=== PATIENT | male | born 1955 | race African-American/Black ===

== ENCOUNTER 2017-05-30 12:14 | Emergency (ER) | payer MEDICARE, OTHER ==
[~2017-05-30] VITALS: Ht 177.8 cm; Wt 64.9 kg
[~2017-05-30 12:14] MED LIST: DIPH25CA83 PO; DOXY100C2 PO; QUET200T3 PO; THIO10CA PO; TRAZ-144 PO; TYL2T MC; [UNRECOGNIZED DRUG - CODE] PO
[2017-05-30 12:18] VITALS: BP 139/82
== END 2017-05-30 13:05 | disposition home or self-care (01) ==
LOC: ER 12:16
DX: Z76.0 Encounter for issue of repeat prescription (principal); G89.29 Other chronic pain; M19.90 Unspecified osteoarthritis, unspecified site; F20.9 Schizophrenia, unspecified; F32.9 Major depressive disorder, single episode, unspecified; F17.200 Nicotine dependence, unspecified, uncomplicated; Z88.8 Allergy status to other drugs, medicaments and biological substances
CPT/HCPCS: A4606; Z7610

== ENCOUNTER 2018-01-04 20:14 | Inpatient (IN) | payer MEDICARE, OTHER ==
[~2018-01-04] VITALS: Ht 167.6 cm; Wt 60.8 kg
--- NOTE | 2018-01-04 20:30 | NUR ---
TO BED 4 A 62 YO MALE PATIENT BIBRA FOR "ALTERED" PER RA 88 REPORT AND HYPOTENSIVE. PATIENT IS LETHARGIC, AROUSABLE TO VERBAL AND TACTILE STIMULI. BREATHING EVEN AND UNLABORED. SKIN WARM AND DRY. PLACED ON CARDIAC AND VS MONITORING. SAFETY MEASURES IN PLACE. PATIENT REFUSED TO WEAR GOWN AT THIS TIME.
--- NOTE | 2018-01-04 21:17 | NUR ---
XR AT BEDSIDE.
[2018-01-04 21:29] LABS: HEMATOCRIT 35 % (39-51); MEAN CORPUSCULAR HEMOGLOBIN 19 PG (26.0-33.0); MEAN CORPUSCULAR HGB CONC 31 g/dl (31.0-36.0); MEAN CORPUSCULAR VOLUME 62 fL (80-96); PLATELET COUNT (AUTO) 263 /CMM (150-450); RED BLOOD CELL COUNT(AUTO) 5.68 MIL/uL (4.5-6.0); WHITE BLOOD COUNT (AUTO) 4.4 K/uL (4.3-11.0)
[2018-01-04] MEDS ORDERED: IV NS 0.9% 1,000 ML BAG IV ONE (21:30)
[2018-01-04 21:34] LABS: APPEARANCE,URINE CLEAR (CLEAR); BILIRUBIN,URINE NEGATIVE (NEGATIVE); BLOOD, URINE NEGATIVE Ery/uL (NEGATIVE); COLOR,URINE YELLOW (YELLOW); KETONES,URINE NEGATIVE (NEGATIVE); LEUKOCYTE ESTERASE ,URINE TRACE (NEGATIVE); NITRITE, URINE NEGATIVE (NEGATIVE); PH,URINE 7.5 (5.0-8.0); PROTEIN,URINE NEGATIVE (NEGATIVE); UGLUCOSE NEGATIVE (NEGATIVE)
--- NOTE | 2018-01-04 21:34 | NUR ---
BACK FROM CT.
[2018-01-04 21:40] LABS: CALCIUM, SERUM 8.1 mg/dL (8.5-10.1); CARBON DIOXIDE 31 mmol/L (21-32); CHLORIDE 109 mmol/L (98-107); CREATININE 0.9 mg/dL (0.6-1.3); GLUCOSE 83 mg/dL (74-106); POTASSIUM 4.5 mmol/L (3.5-5.1); SODIUM SERUM 144 mmol/L (136-145); UREA NITROGEN, BLOOD 13 mg/dL (7-18)
[2018-01-04 21:48] LABS: TROPONIN I < 0.017 ng/mL (0.00-0.056)
[2018-01-04 21:48] LABS: BACTERIA,URINE 1+ /HPF (None Seen); RBC,URINE 0-2 /HPF (0-2); SQUAMOUS EPITHELIAL CELL,UR 0-2 /HPF (None Seen); URINE AMORPHOUS PHOSPHATES Few /HPF (None Seen)
[2018-01-04 21:51] LABS: INR 1.1 (0.87-1.13)
[2018-01-04 21:54] LABS: ALANINE AMINOTRANSFERASE 88 U/L (12-78); ALBUMIN 2.6 g/dL (3.4-5.0); ALKALINE PHOSPHATASE 32 U/L (46-116); ASPARTATE AMINOTRANSFERASE 68 U/L (15-37); B-TYPE NATRIURETIC PEPTIDE 208 PG/ML (0-125); BILIRUBIN,DIRECT 0.1 mg/dL (0.0-0.2); BILIRUBIN,TOTAL 0.3 mg/dL (0.2-1.0); TOTAL PROTEIN, SERUM 6.9 g/dL (6.4-8.2)
[2018-01-04] MEDS ORDERED: PIPERACILLIN /TAZOBACTAM 3.375 G in IV D5W 50 ML IV ONE (22:00)
[2018-01-04] MEDS ORDERED: VANCOMYCIN 1 GM in IV D5W 250 ML IV ONE (22:00)
[2018-01-04] MEDS ORDERED: VANCOMYCIN 1 GM VIAL ONE (22:05)
[2018-01-04] MEDS ORDERED: PIPERACILLIN /TAZOBACTAM 3.375 G VIAL IV ONE (22:05)
[2018-01-04 22:08] LABS: BAND % (MANUAL) 1 % (0.0-5.0); EOSINOPHILS % (MANUAL) 3 % (0-4); LYMPHOCYTES % (MANUAL) 46 % (16-48); MONOCYTES % (MANUAL) 12 % (0-11.0); NEUTROPHILS % (MANUAL) 36 (42-76); REACTIVE LYMPHOCYTES 2 % (0-0)
[2018-01-04] MEDS ORDERED: Z GUARD REMEDY 2 OZ OINT TP PRN (22:30)
[2018-01-04] MEDS ORDERED: HYDROCODONE/APAP 5/325MG 1 EACH TABLET PO PRN (22:30)
[2018-01-04] MEDS ORDERED: ONDANSETRON HCL/PF 4 MG/2 ML VIAL IVP PRN (22:30)
[2018-01-04] MEDS ORDERED: MAG HYDROX/AL HYDROX/SIMETH 30 ML UDC PO PRN (22:30)
[2018-01-04] MEDS ORDERED: ACETAMINOPHEN 325 MG TABLET PO PRN (22:30)
[2018-01-04] MEDS ORDERED: MAGNESIUM HYDROXIDE 30 ML UDC PO PRN (22:30)
[2018-01-04] MEDS ORDERED: ZOLPIDEM TARTRATE 5 MG TABLET PO PRN (22:30)
--- NOTE | 2018-01-05 00:51 | NUR ---
ANDREA 105
--- NOTE | 2018-01-05 01:30 | NUR ---
Report given to Lena MCDANIEL for admission and stephon.
--- NOTE | 2018-01-05 01:43 | NUR ---
Transferred patient to benjie 105 via als protocol and assisted patient to walk to bed. vss. nad noted. Endorsed to RN at bedside.
[2018-01-05] MEDS: IV NS 0.9% 1,000 ML IV PRN ×2 (03:18→12:06)
[2018-01-05] MEDS: PANTOPRAZOLE 40 MG VIAL IV SCH ×2 (03:21→09:25)
[2018-01-05 04:00] VITALS: BP 102/65
--- NOTE | 2018-01-05 07:30 | NUR ---
PT IN BED, ASLEEP. NO DISTRESS NOTED. WILL CONT TO MONITOR.
[2018-01-05] MEDS ORDERED: LEVE500T9 PO (07:49)
[2018-01-05] MEDS ORDERED: ATOR20TA PO (07:49)
[2018-01-05] MEDS ORDERED: CLON2TAB4 PO (07:49)
[2018-01-05] MEDS ORDERED: METO25TA6 PO (07:49)
[2018-01-05 08:00] VITALS: BP 115/68
[2018-01-05 12:00] VITALS: BP 99/64
--- NOTE | 2018-01-05 12:30 | NUR ---
PT GOT SO AGITATED BECAUSE HE WAS LOOKING FOR HIS JACKET AND MONEY. NO MENTION OF JACKET AND MONEY ON PT'S ADMISSION WITH BELONGINGS CHECKLIST. PT WENT OUT OF BUILDING DEMANDING THAT HE WILL LOOK FOR HIS JACKET AND MONEY AND THAT HE NEEDED TO FIND A PAY PHONE. SECURITY NOTIFIED TO HELP. PT SENT BACK TO ROOM AND RE ASSURED TO TRY TO LOCATE HIS JACKET. CALLED ER, NO JACKET AND MONEY FOUND. PT UPSET, SECURITY AT BEDSIDE. WILL CONT TO MONITOR.
[2018-01-05] MEDS ORDERED: FIXODENT 1 EA TUBE MM PRN (18:30)
--- NOTE | 2018-01-05 18:47 | NUR ---
PT ASLEEP AT THIS TIME. REFUSED 1600 VITAL SIGNS. REFUSED TO EAT DEMANDING FOR FIXODENT. WILL GIVE TO PT IT BECOMES AVAILABLE FROM PHARMACY. REFUSED TO GET ASSISTED WITH ADL'S. WILL CONT TO MONITOR.
--- NOTE | 2018-01-05 20:00 | NUR ---
PRIVATE BANKER NOTES. PATIENT REFUSED VITAL SIGNS CHECK FOR 20:00. EXPLAINED RISKS AND BENEFITS AND OFFERED 3 TIMES AND STILL REFUSED.
--- NOTE | 2018-01-05 20:43 | NUR ---
SHEEP HERDER NOTES. TRANSFERRED CARE OF PATIENT AND GIVEN REPORT TO JONAS NATARAJAN
--- NOTE | 2018-01-05 21:00 | NUR ---
PETS SALESPERSON INITIAL NOTES PT WAS ENDORSED TO ME FOR SHIMA. IV IS PULLED OUT, PT IS REFUSING REINSERTION OF IV. PT IS REFUSING VITALS. EDUCATION WAS GIVEN. WILL CONTINUE TO MONITOR PT
--- NOTE | 2018-01-06 06:32 | NUR ---
ONLINE MARKETING SPECIALIST CLOSING NOTES PT IS IN BED SLEEPING. NO SIGNS OF SOB OR DISTRESS, BREATHING EVENLY AND UNLABORED ON RA. PT CONTINUED TO REFUSE VITAL SIGNS, BLOOD DRAW, AND IV REINSERTION. TELE MONITOR SHOWS SB 44. BED IS IN LOW AND LOCKED POSITION, CALL LIGHT WITHIN REACH. WILL ENDORSE TO DAYSHIFT
--- NOTE | 2018-01-06 07:30 | NUR ---
SENIOR MAINTENANCE MACHINIST AM NOTES PT IN BED, AAO X 3, ON RA, NO SIGNS OF SOB OR DISTRESS, BREATHING EVENLY AND UNLABORED ON RA. REFUSE TO PUT ON TELEMETRY BOX, REFUSE VITAL SIGNS, BLOOD DRAW, AND IV REINSERTION. AWARE. BRP, REFUSE BODY ASSESSMENT. REGULAR DIET. BED IS IN LOW AND LOCKED POSITION, CALL LIGHT WITHIN REACH. WILL CONTINUE TO MONITOR.
[2018-01-06] MEDS: PANTOPRAZOLE 40 MG VIAL IV SCH (09:00)
--- NOTE | 2018-01-06 11:04 | NUR ---
PINKY and case specialist Ciro met with pt. bedside. Pt. was lying in bed and was disgruntled. Pt. states he wants to leave the hospital and go back to [facility]. Pt. was admitted to [facility] on 01/04/[address] [facility] for altered level of consciousness. Pt. informed PINKY his belongings are at [facility]. PINKY informed pt. she will contact [facility] and follow up with him. PINKY contacted intake at [facility] and spoke to Caro in regards to pt. wanting to come back to [place]. Caro informed SW to fax clinicals and they will accept pt. back to their facility. PINKY faxed clinicals to intake (Caro) at . PINKY updated case specialist Ciro regarding pt. being accepted to [facility] in [place] and requested discharge summary from Dr. Castanon.
--- NOTE | 2018-01-06 12:07 | NUR ---
MS RN NOTES PATIENT TRANSFERRED TO [facility] RM 207 -1 REPORT GIVEN TO KIN MCDANIEL.
[2018-01-06 12:15] VITALS: BP 100/69
--- NOTE | 2018-01-06 13:09 | NUR ---
RN NOTES PT TRANSFERRED FROM [facility] TO 207 -1 A/O X 3, SAME VERBALLY RESPONSIVE. HE WAS ORIENTED TO UNIT BUT REFUSED ANY ASSESSMENT. PT WAS AGITATED AND UPSET THAT HE WAS MOVED TO THE UNIT AND STATED THAT HE JUST WANTED TO BE DISCHARGED. CM AND SW MADE AWARE AND CAME TO UNIT, SPOKE TO THE PT AND STILL FIRM ON GOING TO BE D/C. WILL CONTINUE TO MONITOR.
--- NOTE | 2018-01-06 13:35 | NUR ---
PINKY received a call from [facility] at [facility] informing SW that pt. will be going to [facility] location and to give grading clerk Kathy a call at . PINKY contacted grading clerk Kathy at [facility]. JONAS Grey informed SW to have pt's RN call in for a nurse to nurse report. PINKY gave pt's RN Ray contact information to JONAS Grey and informed him to call in the report to her .
--- NOTE | 2018-01-06 14:34 | NUR ---
RN NOTES PATIENT ASKED IF HE CAN STAY UNTIL PSYCH EVALUATION DONE. CALLED DR GIVENS BUT SAID THAT HE COULDN'T COME TODAY AND SAID TO CALL CRISIS SNAKER TRACTOR DRIVER TO COME. CRISIS SNAKER TRACTOR DRIVER SHAILESH JASSO CAME AND ASSESSED PT. PER GINO, PT DOES NOT MEET 5150 CRITERIA HOWEVER HE AGREED TO BE TRANSFERRED TO [facility]. CALLED BIBIANA AND GAVE REPORT. BED 608A IS READY FOR HIM.
--- NOTE | 2018-01-06 15:41 | NUR ---
RN DISCHARGED NOTES PATIENT DISCHARGED TO [facility] RM 608A STABLE AND IN NO ACUTE SIGNS OF DISTRESS. PT A/O X 3, CALMED AND COOPERATIVE DURING DISCHARGE. V/S TAKEN AND RECORDED. PT REFUSED SKIN ASSESSMENT. BELONGINGS CHECKED. COUNTED AND SIGNED FORM. PT REFUSED PNA AND FLU VACCINES. HEALTH TEACHINGS GIVEN AND VERBALIZED UNDERSTANDING. PT LEFT UNIT AT 1500 AMBULATORY ACCOMPANIED BY ME TO WAITING TAXI IN FRONT OF THE LOBBY. INSTRUCTIONS GIVEN TO MOTORCYCLE DESIGNER TO BRING PT TO ADMITTING DEPT ON THE FIRST FLOOR. MD AND EXECUTIVE DIRECTOR OF MARKETING AWARE OF DISCHARGE.
== END 2018-01-06 15:15 | DRG 917 ==
LOC: ER 20:15 → TELE-TD 01-05 00:53 → TELE1 01-05 17:06 → MEDSG1 01-06 12:04 → MEDSG2 01-06 12:04
PROVIDERS: ADMIT Internal Medicine; ATTEND Internal Medicine
DX: T44.7X1A Poisoning by beta-adrenoreceptor antagonists, accidental (unintentional), initial encounter (principal); G93.41 Metabolic encephalopathy; I95.2 Hypotension due to drugs; F20.9 Schizophrenia, unspecified; Y92.89 Other specified places as the place of occurrence of the external cause; D63.8 Anemia in other chronic diseases classified elsewhere; I10 Essential (primary) hypertension; J44.9 Chronic obstructive pulmonary disease, unspecified; G40.909 Epilepsy, unspecified, not intractable, without status epilepticus; F32.9 Major depressive disorder, single episode, unspecified; R53.1 Weakness; R00.1 Bradycardia, unspecified; Z79.899 Other long term (current) drug therapy
CPT/HCPCS: 36415; 70450-TC; 71045-TC; 80048-TC; 80076-TC; 80305; 81000-TC; 83605-TC; 83880; 84484-TC; 85025-TC; 85730-TC; 86850-TC; 87040-TC; 87081-TC; 87086-TC; C9113; G0480; J2543; J3370; J7030; J7040; J7060; Z7610

== ENCOUNTER 2018-11-24 20:35 | Inpatient (IN) | payer MEDICARE, OTHER ==
[~2018-11-24] VITALS: Ht 177.8 cm; Wt 63.5 kg
[~2018-11-24 20:35] MED LIST changes: +ATOR20TA PO; +CLON2TAB11 PO; -DIPH25CA83 PO; -DOXY100C2 PO; +LEVE500T9 PO; -QUET200T3 PO; -THIO10CA PO; -TRAZ-144 PO; -TYL2T MC; -[UNRECOGNIZED DRUG - CODE] PO
[2018-11-24 22:30] VITALS: BP 93/63
[2018-11-24] MEDS ORDERED: MAGNESIUM HYDROXIDE 30 ML UDC PO PRN (22:30)
[2018-11-24] MEDS ORDERED: MAG HYDROX/AL HYDROX/SIMETH 30 ML UDC PO PRN (22:30)
[2018-11-24] MEDS ORDERED: ACETAMINOPHEN 325 MG TABLET PO PRN (22:30)
[2018-11-25 06:15] LABS: HEMATOCRIT 39 % (39-51); MEAN CORPUSCULAR HGB CONC 31 g/dl (31.0-36.0); MEAN CORPUSCULAR VOLUME 61 fL (80-96); PLATELET COUNT (AUTO) 148 /CMM (150-450); WHITE BLOOD COUNT (AUTO) 3.1 K/uL (4.3-11.0)
[2018-11-25 06:28] LABS: ALBUMIN 2.6 g/dL (3.4-5.0); BILIRUBIN,TOTAL 0.7 mg/dL (0.2-1.0); CALCIUM, SERUM 7.9 mg/dL (8.5-10.1); CREATININE 0.9 mg/dL (0.6-1.3); MAGNESIUM 1.8 mg/dL (1.8-2.4); PHOSPHORUS 2.8 mg/dL (2.5-4.9); POTASSIUM 3.9 mmol/L (3.5-5.1); TOTAL PROTEIN, SERUM 6.3 g/dL (6.4-8.2)
[2018-11-25 08:00] VITALS: BP 110/69
[2018-11-25] MEDS ORDERED: Medication Not On Formulary EA (Levetiracetam (Keppra) 500 MG) PO SCH (09:00)
[2018-11-25 09:01] LABS: EOSINOPHILS % (MANUAL) 1 % (0-4); LYMPHOCYTES % (MANUAL) 42 % (16-48); MONOCYTES % (MANUAL) 7 % (0-11.0); NEUTROPHILS % (MANUAL) 50 (42-76)
[2018-11-25] MEDS: FLUTICASONE/VILANTEROL 1 EACH BLST.W.DEV IH SCH (09:31)
[2018-11-25] MEDS: NICOTINE PATCH (14MG) 14 MG PATCH.TD24 TD SCH (09:31)
[2018-11-25] MEDS: LEVETIRACETAM (250 MG) 250 MG TABLET PO SCH ×2 (09:32→17:53)
[2018-11-25 20:15] VITALS: BP 99/61
[2018-11-25] MEDS: TRAZODONE 50 MG TABLET PO SCH (21:09)
[2018-11-25] MEDS: ATORVASTATIN 10 MG TABLET PO SCH (21:10)
[2018-11-25] MEDS ORDERED: Medication Not On Formulary EA (Atorvastatin Calcium (Lipitor) 20 MG) PO SCH (22:00)
[2018-11-26 08:00] VITALS: BP 92/57
[2018-11-26] MEDS: LEVETIRACETAM (250 MG) 250 MG TABLET PO SCH ×2 (08:40→17:00)
[2018-11-26] MEDS: BENZTROPINE MESYLATE (1 MG) 1 MG TABLET PO SCH ×2 (08:40→17:00)
[2018-11-26] MEDS: CARBAMAZEPINE 200 MG TABLET PO SCH ×3 (08:40→17:01)
[2018-11-26] MEDS: NICOTINE PATCH (14MG) 14 MG PATCH.TD24 TD SCH (08:47)
[2018-11-26] MEDS: FLUTICASONE/VILANTEROL 1 EACH BLST.W.DEV IH SCH (08:47)
[2018-11-26] MEDS ORDERED: THIOTHIXENE 5 MG CAPSULE PO SCH (09:00)
[2018-11-26 16:00] VITALS: BP 100/61
[2018-11-26] MEDS ORDERED: HALOPERIDOL 5 MG TABLET PO ONE (17:00)
[2018-11-26 20:00] VITALS: BP 124/54
[2018-11-26] MEDS: TRAZODONE 50 MG TABLET PO SCH (21:10)
[2018-11-26] MEDS: ATORVASTATIN 10 MG TABLET PO SCH (21:10)
[2018-11-27 08:00] VITALS: BP 90/50
[2018-11-27] MEDS: NICOTINE PATCH (14MG) 14 MG PATCH.TD24 TD SCH (08:29)
[2018-11-27] MEDS: BENZTROPINE MESYLATE (1 MG) 1 MG TABLET PO SCH ×2 (08:30→16:15)
[2018-11-27] MEDS: HALOPERIDOL 5 MG TABLET PO SCH ×2 (08:30→16:15)
[2018-11-27] MEDS: CARBAMAZEPINE 200 MG TABLET PO SCH ×3 (08:30→16:15)
[2018-11-27] MEDS: LEVETIRACETAM (250 MG) 250 MG TABLET PO SCH ×2 (08:33→16:15)
[2018-11-27] MEDS: FLUTICASONE/VILANTEROL 1 EACH BLST.W.DEV IH SCH (08:33)
[2018-11-27 16:00] VITALS: BP 97/61
[2018-11-27 20:44] VITALS: BP 95/52
[2018-11-27] MEDS: ATORVASTATIN 10 MG TABLET PO SCH (21:22)
[2018-11-27] MEDS: TRAZODONE 50 MG TABLET PO SCH (21:23)
[2018-11-27] MEDS: TEMAZEPAM 7.5 MG CAPSULE PO PRN (22:11)
[2018-11-28 08:00] VITALS: BP 135/60
[2018-11-28] MEDS: LEVETIRACETAM (250 MG) 250 MG TABLET PO SCH ×2 (08:33→16:41)
[2018-11-28] MEDS: BENZTROPINE MESYLATE (1 MG) 1 MG TABLET PO SCH ×2 (08:33→16:41)
[2018-11-28] MEDS: HALOPERIDOL 5 MG TABLET PO SCH ×2 (08:33→16:41)
[2018-11-28] MEDS: NICOTINE PATCH (14MG) 14 MG PATCH.TD24 TD SCH ×2 (08:33→08:40)
[2018-11-28] MEDS: CARBAMAZEPINE 200 MG TABLET PO SCH ×3 (08:33→16:41)
[2018-11-28] MEDS: FLUTICASONE/VILANTEROL 1 EACH BLST.W.DEV IH SCH (08:40)
[2018-11-28] MEDS: LORAZEPAM 0.5 MG TABLET PO PRN (14:29)
[2018-11-28 16:03] VITALS: BP 102/51
[2018-11-28 20:00] VITALS: BP 106/54
[2018-11-28] MEDS: ATORVASTATIN 10 MG TABLET PO SCH (21:41)
[2018-11-28] MEDS: TRAZODONE 50 MG TABLET PO SCH (21:42)
[2018-11-29 08:05] VITALS: BP 108/62
[2018-11-29] MEDS: FLUTICASONE/VILANTEROL 1 EACH BLST.W.DEV IH SCH (08:40)
[2018-11-29] MEDS: BENZTROPINE MESYLATE (1 MG) 1 MG TABLET PO SCH ×2 (08:41→16:20)
[2018-11-29] MEDS: NICOTINE PATCH (14MG) 14 MG PATCH.TD24 TD SCH ×2 (08:41→08:57)
[2018-11-29] MEDS: CARBAMAZEPINE 200 MG TABLET PO SCH ×3 (08:41→16:20)
[2018-11-29] MEDS: LEVETIRACETAM (250 MG) 250 MG TABLET PO SCH ×2 (08:41→16:20)
[2018-11-29] MEDS: HALOPERIDOL 5 MG TABLET PO SCH ×2 (08:41→16:20)
[2018-11-29] MEDS: LORAZEPAM 0.5 MG TABLET PO PRN ×2 (09:46→20:14)
[2018-11-29 16:30] VITALS: BP 113/65
[2018-11-29 20:00] VITALS: BP 116/58
[2018-11-29] MEDS: TRAZODONE 50 MG TABLET PO SCH (21:51)
[2018-11-29] MEDS: TEMAZEPAM 7.5 MG CAPSULE PO PRN (21:51)
[2018-11-29] MEDS: ATORVASTATIN 10 MG TABLET PO SCH (21:52)
[2018-11-30] MEDS: LORAZEPAM 0.5 MG TABLET PO PRN ×2 (06:16→23:21)
[2018-11-30 06:54] LABS: HEMATOCRIT 41 % (39-51); HEMOGLOBIN 12.9 g/dL (13.5-17.5); LYMPHOCYTES % (AUTO) 32.5 % (20.0-44.0); MEAN CORPUSCULAR HGB CONC 31 g/dl (31.0-36.0); MEAN CORPUSCULAR VOLUME 61 fL (80-96); MONOCYTES # (AUTO) 0.7 /CMM (0.1-1.30); MONOCYTES % (AUTO) 23.3 % (2.0-12.0); NEUTROPHILS # (AUTO) 1.3 /CMM (1.8-8.9); NEUTROPHILS % (AUTO) 41.2 % (43.0-81.0); PLATELET COUNT (AUTO) 176 /CMM (150-450); RED BLOOD CELL COUNT(AUTO) 6.67 MIL/uL (4.5-6.0); WHITE BLOOD COUNT (AUTO) 3.1 K/uL (4.3-11.0)
[2018-11-30 07:16] LABS: ALBUMIN 3.4 g/dL (3.4-5.0); BILIRUBIN,DIRECT 0.2 mg/dL (0.0-0.2); BILIRUBIN,TOTAL 0.5 mg/dL (0.2-1.0); CALCIUM, SERUM 8.9 mg/dL (8.5-10.1); CREATININE 1.1 mg/dL (0.6-1.3); POTASSIUM 4.8 mmol/L (3.5-5.1); TOTAL PROTEIN, SERUM 7.5 g/dL (6.4-8.2)
[2018-11-30 08:00] VITALS: BP 113/44
[2018-11-30] MEDS: HALOPERIDOL 5 MG TABLET PO SCH ×2 (08:48→17:01)
[2018-11-30] MEDS: LEVETIRACETAM (250 MG) 250 MG TABLET PO SCH ×2 (08:48→17:01)
[2018-11-30] MEDS: CARBAMAZEPINE 200 MG TABLET PO SCH ×3 (08:48→17:02)
[2018-11-30] MEDS: BENZTROPINE MESYLATE (1 MG) 1 MG TABLET PO SCH ×2 (08:48→17:01)
[2018-11-30] MEDS: FLUTICASONE/VILANTEROL 1 EACH BLST.W.DEV IH SCH (08:51)
[2018-11-30] MEDS: NICOTINE PATCH (14MG) 14 MG PATCH.TD24 TD SCH (08:52)
[2018-11-30 10:14] LABS: EOSINOPHILS % (MANUAL) 1 % (0-4); LYMPHOCYTES % (MANUAL) 19 % (16-48); MONOCYTES % (MANUAL) 31 % (0-11.0); NEUTROPHILS % (MANUAL) 49 (42-76)
[2018-11-30 16:00] VITALS: BP 100/54
[2018-11-30 20:25] VITALS: BP 107/53
[2018-11-30] MEDS: ATORVASTATIN 10 MG TABLET PO SCH (21:31)
[2018-11-30] MEDS: TRAZODONE 50 MG TABLET PO SCH (21:31)
[2018-12-01 08:00] VITALS: BP 100/64
[2018-12-01] MEDS: BENZTROPINE MESYLATE (1 MG) 1 MG TABLET PO SCH ×2 (08:43→16:28)
[2018-12-01] MEDS: HALOPERIDOL 5 MG TABLET PO SCH ×2 (08:43→16:28)
[2018-12-01] MEDS: LEVETIRACETAM (250 MG) 250 MG TABLET PO SCH ×2 (08:43→16:28)
[2018-12-01] MEDS: FLUTICASONE/VILANTEROL 1 EACH BLST.W.DEV IH SCH (08:43)
[2018-12-01] MEDS: CARBAMAZEPINE 200 MG TABLET PO SCH ×3 (08:43→16:34)
[2018-12-01] MEDS: NICOTINE PATCH (14MG) 14 MG PATCH.TD24 TD SCH (08:55)
[2018-12-01] MEDS: LORAZEPAM 0.5 MG TABLET PO PRN (09:06)
[2018-12-01 16:09] VITALS: BP 100/64
[2018-12-01 20:00] VITALS: BP 101/61
[2018-12-01] MEDS: TEMAZEPAM 7.5 MG CAPSULE PO PRN (21:42)
[2018-12-01] MEDS: TRAZODONE 50 MG TABLET PO SCH (21:42)
[2018-12-01] MEDS: ATORVASTATIN 10 MG TABLET PO SCH (21:42)
[2018-12-02 08:00] VITALS: BP 109/58
[2018-12-02] MEDS: LORAZEPAM 0.5 MG TABLET PO PRN (08:48)
[2018-12-02] MEDS: FLUTICASONE/VILANTEROL 1 EACH BLST.W.DEV IH SCH (08:48)
[2018-12-02] MEDS: CARBAMAZEPINE 200 MG TABLET PO SCH ×2 (08:48→12:07)
[2018-12-02] MEDS: HALOPERIDOL 5 MG TABLET PO SCH (08:48)
[2018-12-02] MEDS: BENZTROPINE MESYLATE (1 MG) 1 MG TABLET PO SCH (08:49)
[2018-12-02] MEDS: LEVETIRACETAM (250 MG) 250 MG TABLET PO SCH (08:49)
[2018-12-02] MEDS: NICOTINE PATCH (14MG) 14 MG PATCH.TD24 TD SCH (08:55)
== END 2018-12-02 12:30 | disposition home or self-care (01) | DRG 885 ==
LOC: GPS 22:03
PROVIDERS: ADMIT Psychiatry & Neurology Psychiatry; ATTEND Psychiatry & Neurology Psychiatry
DX: F25.9 Schizoaffective disorder, unspecified (principal); E44.0 Moderate protein-calorie malnutrition; D63.8 Anemia in other chronic diseases classified elsewhere; G40.909 Epilepsy, unspecified, not intractable, without status epilepticus; F41.9 Anxiety disorder, unspecified; J44.9 Chronic obstructive pulmonary disease, unspecified; I10 Essential (primary) hypertension; F32.9 Major depressive disorder, single episode, unspecified; Z86.73 Personal history of transient ischemic attack (TIA), and cerebral infarction without residual deficits; D50.9 Iron deficiency anemia, unspecified; R74.0 Nonspecific elevation of levels of transaminase and lactic acid dehydrogenase [LDH]; Z91.5 Personal history of self-harm
CPT/HCPCS: 36415; 76700-TC; 80048-TC; 80053-TC; 80061-TC; 80076-TC; 80156-TC; 80177; 82728-TC; 83540-TC; 83735-TC; 84100-TC; 85025-TC; 87081-TC

== ENCOUNTER 2019-05-06 13:37 | Inpatient (IN) | payer MEDICARE, OTHER ==
[~2019-05-06] VITALS: Ht 177.8 cm; Wt 62.1 kg
--- NOTE | 2019-05-06 14:15 | NUR ---
ANY BOND FROM [employer] FOR MEDICAL CLEARANCE, ON 5150 FOR DTS/DTO. STATES HE WILL JUMP INTO WATER AND DROWN HIMSELF, ALSO THAT PEOPLE ARE FOLLOWING HIM AND SOMEONE STOLE HIS MEDS. DENIES AUDITORY/VISUAL HALLUCINATIONS. NO OTHER COMPLAINTS AT THIS TIME. READY FOR EVAL.
[2019-05-06] MEDS ORDERED: IV NS 0.9% 500 ML BAG IV ONE (14:30)
[2019-05-06 14:45] LABS: BASOPHILS # (AUTO) 0.1 /CMM (0.0-0.2); BASOPHILS % (AUTO) 2.5 % (0.0-2.0); EOSINOPHILS % (AUTO) 4.1 % (0.0-6.0); HEMATOCRIT 37 % (39-51); HEMOGLOBIN 11.5 g/dL (13.5-17.5); LYMPHOCYTES # (AUTO) 0.8 /CMM (0.8-4.8); LYMPHOCYTES % (AUTO) 19.4 % (20.0-44.0); MEAN CORPUSCULAR HGB CONC 31 g/dl (31.0-36.0); MEAN CORPUSCULAR VOLUME 61 fL (80-96); MONOCYTES # (AUTO) 0.6 /CMM (0.1-1.30); MONOCYTES % (AUTO) 16.1 % (2.0-12.0); NEUTROPHILS # (AUTO) 2.3 /CMM (1.8-8.9); NEUTROPHILS % (AUTO) 57.9 % (43.0-81.0); PLATELET COUNT (AUTO) 163 /CMM (150-450); RED BLOOD CELL COUNT(AUTO) 6.08 MIL/uL (4.5-6.0)
[2019-05-06 14:49] LABS: CALCIUM, SERUM 8.7 mg/dL (8.5-10.1); CARBON DIOXIDE 33 mmol/L (21-32); CHLORIDE 103 mmol/L (98-107); CREATININE 0.7 mg/dL (0.6-1.3); GLUCOSE 95 mg/dL (74-106); POTASSIUM 3.9 mmol/L (3.5-5.1); SODIUM SERUM 139 mmol/L (136-145); UREA NITROGEN, BLOOD 7 mg/dL (7-18)
[2019-05-06] MEDS ORDERED: FERR325T24 PO (14:54)
[2019-05-06] MEDS ORDERED: ERGO500040 PO (14:54)
[2019-05-06] MEDS ORDERED: ALBU18HF2 INH (14:54)
[2019-05-06] MEDS ORDERED: DUTA0.5C15 PO (14:54)
[2019-05-06] MEDS ORDERED: PHEN100C12 PO (14:54)
[2019-05-06] MEDS ORDERED: TAMS-12 PO (14:54)
[2019-05-06 14:55] LABS: ALANINE AMINOTRANSFERASE 68 U/L (12-78); ALCOHOL, BLOOD < 3 mg/dL (0-0); ALKALINE PHOSPHATASE 35 U/L (46-116); ASPARTATE AMINOTRANSFERASE 53 U/L (15-37); BILIRUBIN,DIRECT 0.2 mg/dL (0.0-0.2); BILIRUBIN,TOTAL 0.6 mg/dL (0.2-1.0); LIPASE 91 U/L (73-393)
--- NOTE | 2019-05-06 15:27 | NUR ---
URINE SENT TO STAT LAB
--- NOTE | 2019-05-06 16:03 | NUR ---
GPS 091U
--- NOTE | 2019-05-06 16:31 | NUR ---
REPORT GIVEN TO JONAS GILLIS FOR 211B GPS
--- NOTE | 2019-05-06 16:35 | NUR ---
IV removed. Catheter intact and site benign. Pressure and 4x4 applied to site. No bleeding noted.
--- NOTE | 2019-05-06 16:38 | NUR ---
PT GIVEN JELLO, JUICE, AND CRACKERS
--- NOTE | 2019-05-06 17:00 | NUR ---
PT TRANSFERRED TO FLOOR VIA WC
[2019-05-06 17:30] VITALS: BP 128/90
[2019-05-06] MEDS ORDERED: MAGNESIUM HYDROXIDE 30 ML UDC PO PRN (18:00)
[2019-05-06] MEDS ORDERED: MAG HYDROX/AL HYDROX/SIMETH 30 ML UDC PO PRN (18:00)
[2019-05-06] MEDS ORDERED: TEMAZEPAM 7.5 MG CAPSULE PO PRN (18:00)
[2019-05-06] MEDS ORDERED: LORAZEPAM 0.5 MG TABLET PO PRN (18:00)
[2019-05-06] MEDS ORDERED: ACETAMINOPHEN 325 MG TABLET PO PRN (18:00)
[2019-05-06 18:16] LABS: EOSINOPHILS % (MANUAL) 3 % (0-4); LYMPHOCYTES % (MANUAL) 30 % (16-48); MONOCYTES % (MANUAL) 10 % (0-11.0); NEUTROPHILS % (MANUAL) 57 (42-76)
--- NOTE | 2019-05-06 18:45 | NUR ---
GPS/RN-NOTES PATIENT ARRIVES IN THE UNIT VIA WHEEL CHAIR ,BROUGHT IN BY THE ER STAFF.ADMITTED FOR 5150 FOR DTS AND DTO. CONTRABAND AND VITAL SIGN TAKEN. WILL ENDORSE TO INCOMING NURSE FOR THE COMPLETION OF THE ADMISSION PROCESS.DR. BARNHART MADE AWARE OF PATIENT ADMISSION. PATIENT ALERT ORIENTED X3, AMBULATORY WITH STEADY GAIT. ADVISEMENT WAS GIVEN TO THE PATIENT.
--- NOTE | 2019-05-06 19:00 | NUR ---
GPS/PERFORMANCE SPECIALIST NOTES: RECEIVED PT. FROM JONAS VERNON. PT. ARRIVED TO UNIT AT 1715. ADMISSION CONTINUED.
[2019-05-06 20:00] VITALS: BP 97/57
--- NOTE | 2019-05-06 22:25 | NUR ---
GPS/SKIRT CLIPPER NOTES: NOTIFIED PT. FAMILY, AVISBENSON SIMMONS, OF PT. ADMISSION TO UNIT.
[2019-05-06] MEDS: ATORVASTATIN 10 MG TABLET PO SCH (22:36)
[2019-05-06] MEDS: LEVETIRACETAM (250 MG) 250 MG TABLET PO SCH (22:36)
[2019-05-06] MEDS: PHENYTOIN EXTENDED RELEASE 100 MG CAPSULE PO SCH (22:36)
[2019-05-07 07:40] LABS: ALBUMIN 2.9 g/dL (3.4-5.0); BILIRUBIN,TOTAL 0.6 mg/dL (0.2-1.0); CALCIUM, SERUM 8.5 mg/dL (8.5-10.1); CREATININE 0.8 mg/dL (0.6-1.3); POTASSIUM 4.7 mmol/L (3.5-5.1); TOTAL PROTEIN, SERUM 6.9 g/dL (6.4-8.2)
[2019-05-07 07:42] LABS: CHOLESTEROL 141 mg/dL (<200); HDL CHOLESTEROL 57 mg/dL (40-60); LDL 78 mg/dL (0-99); TRIGLYCERIDES 46 mg/dL (30-150)
[2019-05-07 08:00] VITALS: BP 108/67
[2019-05-07] MEDS: DUTASTERIDE (0.5 MG) 0.5 MG CAPSULE PO SCH (08:44)
[2019-05-07] MEDS: FERROUS SULFATE (325 MG) 325 MG/TAB TABLET PO SCH (08:45)
[2019-05-07] MEDS: LEVETIRACETAM (250 MG) 250 MG TABLET PO SCH ×2 (08:45→22:05)
[2019-05-07] MEDS: PHENYTOIN EXTENDED RELEASE 100 MG CAPSULE PO SCH ×2 (08:45→17:23)
[2019-05-07] MEDS: TAMSULOSIN 0.4 MG CAP.SR.24H PO SCH (08:45)
--- NOTE | 2019-05-07 10:01 | NUR ---
INITIAL DISCHARGE PLAN: Pt is currently homeless. Per pt, he would like to be placed in an assisted living facility. SW will work with the pt and the MD regarding appropriate discharge planning. SW will form a safe and proper discharge.
[2019-05-07] MEDS: ALBUTEROL HALF STRENGTH 1.25 MG/3 ML VIAL.NEB NEB PRN (15:27)
[2019-05-07 16:00] VITALS: BP 134/74
--- NOTE | 2019-05-07 19:30 | NUR ---
GPS RN NOTE, RECEIVED PATIENT AWAKE AND IN BED, NO S/S OR COMPLAINTS OF PAIN AT THIS TIME. PATIENT IS DISPLAYING NO S/S OF APPARENT DISTRESS AT THIS TIME. PATIENT BREATHING IS UNLABORED WITH EQUAL RISE AND FALL OF THE CHEST. PATIENT IS ALERT AND ORIENTED X 3 ON ROOM AIR WITH A SPO2 OF 98 %. PATIENT IS MED COMPLAINT, DISORGANIZED,, COOPERATIVE, ANXIOUS, DEPRESSED, AND NEEDS REORIENTATION. PATIENT DENIES SUICIDE AND HOMICIDAL IDEATIONS AT THIS TIME. PATIENT ASSISTED WITH TURNING AND REPOSITIONING Q2HR AND PRN FOR COMFORT AND CIRCULATION. PATIENT HAS NO NEEDS AT THIS TIME. PATIENT EDUCATED ON THE USE OF THE CALL RENTERIA. PATIENT BED SIDE RAILS ARE UP X 2 FOR SAFETY, BED IS LOCKED, AND LOW WILL CONTINUE TO MONITOR AND MAINTAIN SAFETY.
[2019-05-07] MEDS: BENZTROPINE MESYLATE (1 MG) 1 MG TABLET PO SCH (19:47)
[2019-05-07] MEDS: HALOPERIDOL 5 MG TABLET PO SCH (19:47)
[2019-05-07 19:58] VITALS: BP 104/57
[2019-05-07] MEDS: ATORVASTATIN 10 MG TABLET PO SCH (22:05)
[2019-05-07] MEDS: MIRTAZAPINE 15 MG TABLET PO SCH (22:05)
[2019-05-08 08:00] VITALS: BP 101/68
[2019-05-08] MEDS: FERROUS SULFATE (325 MG) 325 MG/TAB TABLET PO SCH (08:37)
[2019-05-08] MEDS: HALOPERIDOL 5 MG TABLET PO SCH ×2 (08:37→21:06)
[2019-05-08] MEDS: TAMSULOSIN 0.4 MG CAP.SR.24H PO SCH (08:37)
[2019-05-08] MEDS: GABAPENTIN 100 MG CAPSULE PO SCH ×3 (08:37→16:39)
[2019-05-08] MEDS: DUTASTERIDE (0.5 MG) 0.5 MG CAPSULE PO SCH (08:37)
[2019-05-08] MEDS: BENZTROPINE MESYLATE (1 MG) 1 MG TABLET PO SCH ×2 (08:37→21:06)
[2019-05-08] MEDS: PHENYTOIN EXTENDED RELEASE 100 MG CAPSULE PO SCH ×2 (08:37→16:39)
[2019-05-08] MEDS: LEVETIRACETAM (250 MG) 250 MG TABLET PO SCH ×2 (08:42→21:06)
[2019-05-08] MEDS ORDERED: GABAPENTIN 300 MG CAPSULE PO SCH (09:00)
[2019-05-08 16:00] VITALS: BP 100/64
[2019-05-08 19:48] VITALS: BP 100/55
[2019-05-08] MEDS: ATORVASTATIN 10 MG TABLET PO SCH (21:06)
[2019-05-08] MEDS: MIRTAZAPINE 15 MG TABLET PO SCH (21:07)
[2019-05-09 08:00] VITALS: BP 101/66
[2019-05-09] MEDS: BENZTROPINE MESYLATE (1 MG) 1 MG TABLET PO SCH ×2 (08:30→21:45)
[2019-05-09] MEDS: HALOPERIDOL 5 MG TABLET PO SCH ×2 (08:30→21:46)
[2019-05-09] MEDS: DUTASTERIDE (0.5 MG) 0.5 MG CAPSULE PO SCH (08:30)
[2019-05-09] MEDS: PHENYTOIN EXTENDED RELEASE 100 MG CAPSULE PO SCH ×2 (08:30→17:34)
[2019-05-09] MEDS: LEVETIRACETAM (250 MG) 250 MG TABLET PO SCH ×2 (08:30→21:46)
[2019-05-09] MEDS: FERROUS SULFATE (325 MG) 325 MG/TAB TABLET PO SCH (08:30)
[2019-05-09] MEDS: GABAPENTIN 100 MG CAPSULE PO SCH ×3 (08:30→17:34)
[2019-05-09] MEDS: TAMSULOSIN 0.4 MG CAP.SR.24H PO SCH (08:36)
[2019-05-09] MEDS ORDERED: ALBUTEROL FS 2.5 MG/0.5 ML VIAL.NEB NEB PRN (13:30)
[2019-05-09 16:00] VITALS: BP 100/59
[2019-05-09 21:01] VITALS: BP 90/43
[2019-05-09] MEDS: ATORVASTATIN 10 MG TABLET PO SCH (21:46)
[2019-05-10 08:00] VITALS: BP 100/58
[2019-05-10] MEDS: LEVETIRACETAM (250 MG) 250 MG TABLET PO SCH ×2 (08:50→20:38)
[2019-05-10] MEDS: HALOPERIDOL 5 MG TABLET PO SCH ×2 (08:50→20:38)
[2019-05-10] MEDS: FERROUS SULFATE (325 MG) 325 MG/TAB TABLET PO SCH (08:50)
[2019-05-10] MEDS: GABAPENTIN 100 MG CAPSULE PO SCH ×3 (08:50→17:37)
[2019-05-10] MEDS: DUTASTERIDE (0.5 MG) 0.5 MG CAPSULE PO SCH (08:50)
[2019-05-10] MEDS: BENZTROPINE MESYLATE (1 MG) 1 MG TABLET PO SCH ×2 (08:51→20:38)
[2019-05-10] MEDS: PHENYTOIN EXTENDED RELEASE 100 MG CAPSULE PO SCH ×2 (08:51→17:38)
[2019-05-10] MEDS: TAMSULOSIN 0.4 MG CAP.SR.24H PO SCH (08:51)
--- NOTE | 2019-05-10 15:05 | NUR ---
GROUP NOTE: Pt was encouraged to participate in group therapy session on 05/10/19 at 2:00pm pt stated, "I need need group therapy" and refused to attend.
--- NOTE | 2019-05-10 15:50 | NUR ---
Pt was notified by PINKY of his PC hearing on 05/11/19 at 1400.
[2019-05-10 16:00] VITALS: BP 98/52
[2019-05-10 20:15] VITALS: BP 111/68
[2019-05-10] MEDS: ATORVASTATIN 10 MG TABLET PO SCH (21:26)
[2019-05-11] MEDS: ALBUTEROL HALF STRENGTH 1.25 MG/3 ML VIAL.NEB NEB PRN (03:51)
[2019-05-11 08:00] VITALS: BP 102/58
[2019-05-11] MEDS: DUTASTERIDE (0.5 MG) 0.5 MG CAPSULE PO SCH (08:49)
[2019-05-11] MEDS: LEVETIRACETAM (250 MG) 250 MG TABLET PO SCH ×2 (08:50→21:04)
[2019-05-11] MEDS: FERROUS SULFATE (325 MG) 325 MG/TAB TABLET PO SCH (08:50)
[2019-05-11] MEDS: GABAPENTIN 100 MG CAPSULE PO SCH ×3 (08:50→17:42)
[2019-05-11] MEDS: TAMSULOSIN 0.4 MG CAP.SR.24H PO SCH (08:50)
[2019-05-11] MEDS: HALOPERIDOL 5 MG TABLET PO SCH ×2 (08:50→21:04)
[2019-05-11] MEDS: BENZTROPINE MESYLATE (1 MG) 1 MG TABLET PO SCH ×2 (08:50→21:04)
[2019-05-11] MEDS: PHENYTOIN EXTENDED RELEASE 100 MG CAPSULE PO SCH ×2 (08:50→17:42)
--- NOTE | 2019-05-11 09:03 | NUR ---
PINKY faxed SNF referral to admissions Department at [facility] Address: [address], [place] [address] for review.
--- NOTE | 2019-05-11 11:45 | NUR ---
SW received a call from Pepper, restorative coordinator at [facility] Address: [facility] [facility], [place] [address] stating pt has been accepted to the facility.
--- NOTE | 2019-05-11 15:15 | NUR ---
Group Note: Pt attended group therapy on 05/11/19 at 2pm discussing the topic of their goals in areas of both their hospitalization and their personal life. Pt remained in the room for about 5 minutes before he left stating that he did not want to participate.
[2019-05-11 16:00] VITALS: BP 136/97
[2019-05-11 20:24] VITALS: BP 101/63
[2019-05-11] MEDS: ATORVASTATIN 10 MG TABLET PO SCH (21:04)
[2019-05-11 23:00] VITALS: BP 110/66
[2019-05-12 08:00] VITALS: BP 106/55
[2019-05-12] MEDS: GABAPENTIN 100 MG CAPSULE PO SCH ×3 (08:19→17:53)
[2019-05-12] MEDS: TAMSULOSIN 0.4 MG CAP.SR.24H PO SCH (08:19)
[2019-05-12] MEDS: DUTASTERIDE (0.5 MG) 0.5 MG CAPSULE PO SCH (08:19)
[2019-05-12] MEDS: PHENYTOIN EXTENDED RELEASE 100 MG CAPSULE PO SCH ×2 (08:20→17:53)
[2019-05-12] MEDS: HALOPERIDOL 5 MG TABLET PO SCH ×2 (08:20→21:18)
[2019-05-12] MEDS: BENZTROPINE MESYLATE (1 MG) 1 MG TABLET PO SCH ×2 (08:21→21:18)
[2019-05-12] MEDS: FERROUS SULFATE (325 MG) 325 MG/TAB TABLET PO SCH (08:21)
[2019-05-12] MEDS: LEVETIRACETAM (250 MG) 250 MG TABLET PO SCH ×2 (08:21→21:18)
--- NOTE | 2019-05-12 08:48 | NUR ---
RN NOTES ADMINISTERED TYLENOL 650 MG PO PRN FOR LOWER BACK PAIN 04/09 PER PATIENT REQUEST. CONTINUED MONITORING.
[2019-05-12] MEDS ORDERED: ERGOCALCIFEROL (VITAMIN D 2) 50,000 UNIT CAPSULE PO SCH (09:00)
[2019-05-12] MEDS ORDERED: FIXODENT 1 EA TUBE MM ONE (12:00)
--- NOTE | 2019-05-12 15:08 | NUR ---
GROUP NOTE: Pt attended group therapy on 05/12/19 at 2pm discussing the topic of Patients right and concerns he had while hospitalized. Pt stated, "I'm just sitting here on the sideline." Pt remained in the room for about 15 minutes then got up and left the group.
[2019-05-12 16:00] VITALS: BP 105/58
[2019-05-12 20:00] VITALS: BP 97/59
[2019-05-12] MEDS: ATORVASTATIN 10 MG TABLET PO SCH (21:18)
[2019-05-12] MEDS: MIRTAZAPINE 15 MG TABLET PO SCH (21:22)
[2019-05-12 22:30] VITALS: BP 108/62
[2019-05-13 08:00] VITALS: BP 115/60
[2019-05-13] MEDS: DUTASTERIDE (0.5 MG) 0.5 MG CAPSULE PO SCH (08:24)
[2019-05-13] MEDS: HALOPERIDOL 5 MG TABLET PO SCH ×2 (08:24→21:18)
[2019-05-13] MEDS: BENZTROPINE MESYLATE (1 MG) 1 MG TABLET PO SCH ×2 (08:25→21:18)
[2019-05-13] MEDS: FERROUS SULFATE (325 MG) 325 MG/TAB TABLET PO SCH (08:25)
[2019-05-13] MEDS: GABAPENTIN 100 MG CAPSULE PO SCH ×3 (08:25→16:50)
[2019-05-13] MEDS: TAMSULOSIN 0.4 MG CAP.SR.24H PO SCH (08:25)
[2019-05-13] MEDS: PHENYTOIN EXTENDED RELEASE 100 MG CAPSULE PO SCH ×2 (08:25→16:50)
[2019-05-13] MEDS: LEVETIRACETAM (250 MG) 250 MG TABLET PO SCH ×2 (08:25→21:18)
--- NOTE | 2019-05-13 15:35 | NUR ---
Group Note: SW encouraged pt to attend group therapy on 05/13/19 at 2pm discussing depression but the pt was unable to attend. Pt stated that he did not want to discuss that topic because he feels better about his life.
[2019-05-13 16:00] VITALS: BP 100/63
[2019-05-13 20:00] VITALS: BP 101/45
[2019-05-13] MEDS: MIRTAZAPINE 15 MG TABLET PO SCH (21:18)
[2019-05-13] MEDS: ATORVASTATIN 10 MG TABLET PO SCH (21:19)
[2019-05-14 06:59] LABS: CALCIUM, SERUM 8.2 mg/dL (8.5-10.1); CREATININE 0.9 mg/dL (0.6-1.3); PHOSPHORUS 4.6 mg/dL (2.5-4.9); POTASSIUM 4.5 mmol/L (3.5-5.1)
[2019-05-14 08:00] VITALS: BP 102/67
[2019-05-14] MEDS: GABAPENTIN 100 MG CAPSULE PO SCH ×2 (08:12→12:03)
[2019-05-14] MEDS: BENZTROPINE MESYLATE (1 MG) 1 MG TABLET PO SCH (08:12)
[2019-05-14] MEDS: TAMSULOSIN 0.4 MG CAP.SR.24H PO SCH (08:12)
[2019-05-14] MEDS: FERROUS SULFATE (325 MG) 325 MG/TAB TABLET PO SCH (08:12)
[2019-05-14] MEDS: PHENYTOIN EXTENDED RELEASE 100 MG CAPSULE PO SCH ×2 (08:12→09:00)
[2019-05-14] MEDS: HALOPERIDOL 5 MG TABLET PO SCH (08:12)
[2019-05-14] MEDS: LEVETIRACETAM (250 MG) 250 MG TABLET PO SCH (08:12)
[2019-05-14] MEDS: DUTASTERIDE (0.5 MG) 0.5 MG CAPSULE PO SCH (08:12)
[2019-05-14 08:14] LABS: BASOPHILS # (AUTO) 0.1 /CMM (0.0-0.2); BASOPHILS % (AUTO) 2.6 % (0.0-2.0); EOSINOPHILS % (AUTO) 6.5 % (0.0-6.0); HEMATOCRIT 38 % (39-51); HEMOGLOBIN 11.7 g/dL (13.5-17.5); LYMPHOCYTES # (AUTO) 0.7 /CMM (0.8-4.8); LYMPHOCYTES % (AUTO) 16.5 % (20.0-44.0); MEAN CORPUSCULAR HGB CONC 31 g/dl (31.0-36.0); MEAN CORPUSCULAR VOLUME 61 fL (80-96); MONOCYTES % (AUTO) 23.6 % (2.0-12.0); NEUTROPHILS # (AUTO) 2.2 /CMM (1.8-8.9); NEUTROPHILS % (AUTO) 50.8 % (43.0-81.0); PLATELET COUNT (AUTO) 179 /CMM (150-450); RED BLOOD CELL COUNT(AUTO) 6.17 MIL/uL (4.5-6.0); WHITE BLOOD COUNT (AUTO) 4.4 K/uL (4.3-11.0)
--- NOTE | 2019-05-14 09:50 | NUR ---
DR. HOUGH COVERING FOR DR. BARNHART GAVE AN ORDER TO D/C HOLD AND D/C TO [facility], TO CONTINUE SAME MEDS INCLUDING PRN AND TO FOLLOW UP WITH PSYCH AND MEDICAL DOCTORS. PT. WITHOUT DISTRESS, DENIES BEING SUICIDAL AND HOMICIDAL. BELONGINGS READY AND DISCHARGE PAPERS READY.
--- NOTE | 2019-05-14 11:05 | NUR ---
REPORT GIVEN TO LAURA OVER THE FACILITY. PT. SIGNED THE DISCHARGE PAPEPRS AND BELONGINGS READY.
--- NOTE | 2019-05-14 11:34 | NUR ---
SAPNA GAVIRIA MADE AWARE OF THE DISCHARGE AND INFORMED THAT PT. REFUSED DILANTIN THIS MORNING BECAUSE HE IS ALREADY ON KEPPRA AND ORDERED TO D/C DILANTIN AND ORDERED TO CONTINUE SAME MEDS INCLUDING PRN WHILE DISCONTINUING DILANTIN UPON DISCHARGE.
[2019-05-14 12:07] LABS: EOSINOPHILS % (MANUAL) 5 % (0-4); LYMPHOCYTES % (MANUAL) 28 % (16-48); MONOCYTES % (MANUAL) 20 % (0-11.0); NEUTROPHILS % (MANUAL) 47 (42-76)
[2019-05-14 16:00] VITALS: BP 108/59
--- NOTE | 2019-05-14 16:15 | NUR ---
PT. LEFT THE UNIT VIA AMBULANCE AND TRANSPORTED VIA A GURNEY WITH BELONGINGS. LEFT WITHOUT DISTRESS AND ON STABLE CONDITION. V/S TAKEN: BP 110/74, IN 65, RR 18, TEMP. 97.5 AND OXYGEN SAT 98%.
--- NOTE | 2019-05-14 16:15 | NUR ---
Discharge Note: Pt was discharged to [facility] ([facility] Address: [facility] [address] [place] [address] via AMBULNZ, around 4pm. Pt has no family to notify. Upon discharge, the pt appeared to be in a euthymic mood and presented with a calm and content affect. Pt. states, I feel motivated today. Pt denied both suicidal and homicidal ideation as well as auditory and visual hallucinations. At the time of discharge, pt was provided with substance abuse referrals as well as smoking cessation referrals that are listed below. Pt will be under the care of his psychiatrist, Dr. Waldemar Fall [address] [place] [address] [phone], a record of notes was faxed to . Pt will also be under the care of his hotel service manager, Dr. Joanna Masterson [address] [address] [phone]. Substance Abuse Referrals: [facility] [address] [place] [address] Tel. -Family Medical Care -Primary Care -[address] [place] Provider -Mental Health Treatment -Tele-dermatology -HIV Services -Telemedicine Services [facility] [address] [facility] [place] [address] [facility] [address] [place] [address] Smoking Cessation Referrals: [facility] 800-LUNGUSA [employer] [facility] [facility] [phone] Pt was referred to a Nicotine Anonymous phone meeting for Friday at 10am with the phone number
== END 2019-05-14 16:15 | DRG 885 ==
LOC: ER 13:45 → GPS 16:35
PROVIDERS: ADMIT Psychiatry & Neurology Psychiatry; ATTEND Nurse Practitioner Acute Care
DX: F25.9 Schizoaffective disorder, unspecified (principal); F01.50 Vascular dementia, unspecified severity, without behavioral disturbance, psychotic disturbance, mood disturbance, and anxiety; E44.0 Moderate protein-calorie malnutrition; R45.851 Suicidal ideations; Z68.1 Body mass index [BMI] 19.9 or less, adult; F32.9 Major depressive disorder, single episode, unspecified; I10 Essential (primary) hypertension; G40.909 Epilepsy, unspecified, not intractable, without status epilepticus; F41.9 Anxiety disorder, unspecified; Z86.73 Personal history of transient ischemic attack (TIA), and cerebral infarction without residual deficits; J44.9 Chronic obstructive pulmonary disease, unspecified; D50.9 Iron deficiency anemia, unspecified; D72.819 Decreased white blood cell count, unspecified; F29 Unspecified psychosis not due to a substance or known physiological condition; Z86.19 Personal history of other infectious and parasitic diseases; K74.60 Unspecified cirrhosis of liver
CPT/HCPCS: 36415; 76700-TC; 80048-TC; 80053-TC; 80061-TC; 80076-TC; 80156-TC; 80185-TC; 80305; 83690-TC; 83735-TC; 84100-TC; 84484-TC; 85025-TC; 85730-TC; 87081-TC; G0480; J7040

== ENCOUNTER 2019-09-10 21:29 | Inpatient (IN) | payer MEDICARE, MEDICAID ==
[~2019-09-10] VITALS: Ht 172.7 cm; Wt 60.8 kg
[~2019-09-10 21:29] MED LIST changes: +ALBU18HF2 INH; +DUTA0.5C15 PO; +ERGO500040 PO; +FERR325T24 PO; +PHEN100C12 PO; +TAMS-12 PO
[2019-09-10] MEDS ORDERED: ALBUTEROL SULFATE INH 18 GM HFA.AER.AD IH PRN (22:00)
[2019-09-10] MEDS ORDERED: ERGOCALCIFEROL (VITAMIN D 2) 50,000 UNIT CAPSULE PO SCH (22:00)
--- NOTE | 2019-09-10 22:30 | NUR ---
-GPS/TOE STRIPPER NOTE: ADMITTED DIRECTLY A 63 YEAR OLD MALE FROM [facility] ON 5150 HOLD FOR DTS. CAME TO THE FLOOR VIA GURNEY ACCOMPANIED BY PARAMEDICS AROUND 2230. PER HOLD HE IS ADMITTED DUE TO DEPRESSION WITH SUICIDAL IDEATION.PATIENT IS UNDER THE PSYCHIATRIC CARE OF DR. ESPINO AND MARIA DEL CARMEN GAVIRIA.DURING ADMISSION PATIENT REPORTED SUICIDAL IDEATION WITH NO PLAN AT THIS TIME. PATIENT IS A/O X3, POORLY CONCENTRATED BUT COOPERATIVE, RESPONDS TO QUESTIONNAIRES APPROPRIATELY, BREATHING PATTERN NON-LABORED, COOPERATIVE, CALM, DEPRESSED, APPROPRIATE, DISHEVELED. SKIN WARM DRY AND INTACT. REFUSED GEN. BODY ASSESSMENT. HE WANTS HIS MOTHER TO BE NOTIFIED IN THE MORNING. MEDICATION GUIDE AND PATIENT'S RIGHTS PROVIDED. PLACED ON FALL PRECAUTION. BED LOCKED AND PLACED ON LOWEST POSITION. BED ALARM ON. ENVIRONMENTAL SAFETY CHECK DONE. WILL CONTINUE TO MONITOR Q 15 MINS. FOR SAFETY AND BEHAVIOR.
[2019-09-10 22:45] VITALS: BP 97/51
[2019-09-10] MEDS ORDERED: ACETAMINOPHEN 325 MG TABLET PO PRN (23:30)
[2019-09-10] MEDS ORDERED: MAGNESIUM HYDROXIDE 30 ML UDC PO PRN (23:30)
[2019-09-10] MEDS ORDERED: TEMAZEPAM 7.5 MG CAPSULE PO PRN (23:30)
[2019-09-10] MEDS ORDERED: clonazePAM 0.5 MG TABLET PO PRN (23:30)
--- NOTE | 2019-09-11 00:13 | NUR ---
ASKED IF I CAN CALL HIS MOTHER WHO LIVES IN [place], PATIENT STATED, " NO, PAMELA. MORNING.
--- NOTE | 2019-09-11 00:14 | NUR ---
MED RECONCILIATION DONE BY MARIA DEL CARMEN GAVIRIA.
[2019-09-11] MEDS: ATORVASTATIN 10 MG TABLET PO SCH ×2 (00:17→21:11)
--- NOTE | 2019-09-11 06:57 | NUR ---
Refused his lipitor last night. stated, " my cholesterol is fine."
[2019-09-11 07:14] LABS: EOSINOPHILS % (AUTO) 3.6 % (0.0-6.0); HEMATOCRIT 40 % (39-51); HEMOGLOBIN 12.3 g/dL (13.5-17.5); LYMPHOCYTES # (AUTO) 2.2 /CMM (0.8-4.8); LYMPHOCYTES % (AUTO) 61.1 % (20.0-44.0); MEAN CORPUSCULAR HGB CONC 31 g/dl (31.0-36.0); MEAN CORPUSCULAR VOLUME 62 fL (80-96); MONOCYTES # (AUTO) 0.3 /CMM (0.1-1.30); MONOCYTES % (AUTO) 9.1 % (2.0-12.0); NEUTROPHILS # (AUTO) 0.9 /CMM (1.8-8.9); NEUTROPHILS % (AUTO) 26.2 % (43.0-81.0); PLATELET COUNT (AUTO) 198 /CMM (150-450); RED BLOOD CELL COUNT(AUTO) 6.37 MIL/uL (4.5-6.0); WHITE BLOOD COUNT (AUTO) 3.6 K/uL (4.3-11.0)
[2019-09-11 07:19] LABS: CALCIUM, SERUM 8.5 mg/dL (8.5-10.1); POTASSIUM 4.7 mmol/L (3.5-5.1)
[2019-09-11] MEDS ORDERED: ALBUTEROL FS 2.5 MG/0.5 ML VIAL.NEB IH PRN (07:39)
[2019-09-11 08:00] VITALS: BP 108/71
[2019-09-11 08:36] LABS: BAND % (MANUAL) 6 % (0.0-5.0); LYMPHOCYTES % (MANUAL) 56 % (16-48); NEUTROPHILS % (MANUAL) 23 (42-76)
[2019-09-11 08:37] LABS: EOSINOPHILS % (MANUAL) 4 % (0-4); MONOCYTES % (MANUAL) 11 % (0-11.0)
[2019-09-11] MEDS: TAMSULOSIN 0.4 MG CAP.SR.24H PO SCH ×2 (09:00→11:02)
[2019-09-11] MEDS: NICOTINE PATCH (21MG) 21 MG PATCH.TD24 TD SCH (09:00)
[2019-09-11] MEDS: FERROUS SULFATE (325 MG) 325 MG/TAB TABLET PO SCH (11:02)
[2019-09-11] MEDS: LEVETIRACETAM (250 MG) 250 MG TABLET PO SCH ×2 (11:02→21:11)
[2019-09-11] MEDS: DUTASTERIDE (0.5 MG) 0.5 MG CAPSULE PO SCH (11:02)
[2019-09-11] MEDS: PHENYTOIN EXTENDED RELEASE 100 MG CAPSULE PO SCH ×2 (11:02→17:37)
[2019-09-11] MEDS: GABAPENTIN 300 MG CAPSULE PO SCH ×2 (12:26→17:37)
[2019-09-11] MEDS: HALOPERIDOL 5 MG TABLET PO SCH ×2 (12:26→17:36)
[2019-09-11] MEDS: BENZTROPINE MESYLATE (1 MG) 1 MG TABLET PO SCH ×2 (12:31→17:36)
[2019-09-11 16:00] VITALS: BP 103/55
[2019-09-11 20:02] VITALS: BP 115/69
[2019-09-11] MEDS: MIRTAZAPINE 15 MG TABLET PO SCH (21:11)
[2019-09-12 08:00] VITALS: BP 117/52
[2019-09-12] MEDS: FERROUS SULFATE (325 MG) 325 MG/TAB TABLET PO SCH (08:21)
[2019-09-12] MEDS: PHENYTOIN EXTENDED RELEASE 100 MG CAPSULE PO SCH ×2 (08:21→16:56)
[2019-09-12] MEDS: DUTASTERIDE (0.5 MG) 0.5 MG CAPSULE PO SCH (08:22)
[2019-09-12] MEDS: GABAPENTIN 300 MG CAPSULE PO SCH ×3 (08:22→16:56)
[2019-09-12] MEDS: LEVETIRACETAM (250 MG) 250 MG TABLET PO SCH ×2 (08:22→20:11)
[2019-09-12] MEDS: HALOPERIDOL 5 MG TABLET PO SCH ×2 (08:22→16:56)
[2019-09-12] MEDS: BENZTROPINE MESYLATE (1 MG) 1 MG TABLET PO SCH ×2 (08:22→16:56)
[2019-09-12] MEDS: TAMSULOSIN 0.4 MG CAP.SR.24H PO SCH (08:23)
[2019-09-12] MEDS: NICOTINE PATCH (21MG) 21 MG PATCH.TD24 TD SCH (09:00)
[2019-09-12 16:00] VITALS: BP 100/65
[2019-09-12 16:10] LABS: APPEARANCE,URINE Clear (CLEAR); BILIRUBIN,URINE Negative (NEGATIVE); BLOOD, URINE Negative Ery/uL (NEGATIVE); COLOR,URINE Yellow (YELLOW); KETONES,URINE Negative (NEGATIVE); LEUKOCYTE ESTERASE ,URINE Negative (NEGATIVE); NITRITE, URINE Negative (NEGATIVE); PROTEIN,URINE Negative (NEGATIVE); UGLUCOSE Negative (NEGATIVE)
--- NOTE | 2019-09-12 19:38 | NUR ---
COMFORTABLE, RESTING QUIETLY IN BED, NO APPARENT DISTRESS NOTED. ENVIRONMENTAL SAFETY CHECK DONE. ON FALL PRECAUTION. BED ALARM ON, BED LOCKED AND PLACED ON LOWEST POSITION. WILL CONYINUE TO MONITOR Q 15 MINS. FOR SAFETY AND BEHAVIOR.
[2019-09-12 19:50] VITALS: BP 90/51
[2019-09-12 20:00] VITALS: BP 90/51
--- NOTE | 2019-09-12 21:02 | NUR ---
2100: PATIENT IS PACING NAKED AROUND THE UNIT.
[2019-09-12] MEDS: MIRTAZAPINE 15 MG TABLET PO SCH (21:09)
[2019-09-12] MEDS: ATORVASTATIN 10 MG TABLET PO SCH (21:09)
--- NOTE | 2019-09-13 06:31 | NUR ---
GPS RN NOTES: PT SLEPT WELL. TOLERATED MEDS DUE. NO S/S OF PAIN NOTED. CONTINUE TO MONITOR.
[2019-09-13 08:00] VITALS: BP 100/53
[2019-09-13] MEDS: GABAPENTIN 300 MG CAPSULE PO SCH ×3 (08:00→17:13)
[2019-09-13] MEDS: TAMSULOSIN 0.4 MG CAP.SR.24H PO SCH (08:00)
[2019-09-13] MEDS: PHENYTOIN EXTENDED RELEASE 100 MG CAPSULE PO SCH ×2 (08:00→17:12)
[2019-09-13] MEDS: BENZTROPINE MESYLATE (1 MG) 1 MG TABLET PO SCH ×2 (08:00→17:13)
[2019-09-13] MEDS: DUTASTERIDE (0.5 MG) 0.5 MG CAPSULE PO SCH (08:00)
[2019-09-13] MEDS: FERROUS SULFATE (325 MG) 325 MG/TAB TABLET PO SCH (08:00)
[2019-09-13] MEDS: HALOPERIDOL 5 MG TABLET PO SCH ×2 (08:00→17:13)
[2019-09-13] MEDS: LEVETIRACETAM (250 MG) 250 MG TABLET PO SCH ×2 (08:00→21:17)
[2019-09-13] MEDS: NICOTINE PATCH (21MG) 21 MG PATCH.TD24 TD SCH (08:02)
--- NOTE | 2019-09-13 13:15 | NUR ---
INITIAL DISCHARGE PLAN: Pt is currently homeless. Per pt, he would like to be [facility] in a [facility]. SW will work with the pt and the MD regarding appropriate discharge planning. SW will form a safe and proper discharge.
--- NOTE | 2019-09-13 15:00 | NUR ---
GROUP NOTE: SW encouraged pt to participate in group on this present day discussing "gaining insight." Pt participated in group and stated that he had been off his medications while he was in [place] and stated that he started hearing voices that were saying that people were following him. Pt stated that he decided to check himself into the hospital to get on medications and also due to him being homeless and needing a SNF to go to.
[2019-09-13 16:00] VITALS: BP 119/64
[2019-09-13 20:15] VITALS: BP 105/58
[2019-09-13] MEDS: ATORVASTATIN 10 MG TABLET PO SCH (21:18)
[2019-09-13] MEDS: MIRTAZAPINE 15 MG TABLET PO SCH (21:18)
--- NOTE | 2019-09-13 23:14 | NUR ---
pt recieved awake alert and x3 .pt seem to ba depressed .pt is on 5250. pt was positive for cocaine.pt have psoriasis .will monitor pt for any dis comfort and for safety.
[2019-09-14 08:00] VITALS: BP 100/54
[2019-09-14] MEDS: DUTASTERIDE (0.5 MG) 0.5 MG CAPSULE PO SCH (08:39)
[2019-09-14] MEDS: HALOPERIDOL 5 MG TABLET PO SCH ×2 (08:39→16:39)
[2019-09-14] MEDS: LEVETIRACETAM (250 MG) 250 MG TABLET PO SCH ×2 (08:39→21:36)
[2019-09-14] MEDS: BENZTROPINE MESYLATE (1 MG) 1 MG TABLET PO SCH ×2 (08:39→16:39)
[2019-09-14] MEDS: PHENYTOIN EXTENDED RELEASE 100 MG CAPSULE PO SCH ×2 (08:39→16:39)
[2019-09-14] MEDS: FERROUS SULFATE (325 MG) 325 MG/TAB TABLET PO SCH (08:39)
[2019-09-14] MEDS: TAMSULOSIN 0.4 MG CAP.SR.24H PO SCH (08:39)
[2019-09-14] MEDS: GABAPENTIN 300 MG CAPSULE PO SCH ×3 (08:39→16:39)
[2019-09-14] MEDS: NICOTINE PATCH (21MG) 21 MG PATCH.TD24 TD SCH (08:46)
--- NOTE | 2019-09-14 14:40 | NUR ---
GROUP NOTE: SW encouraged pt to participate in group on this present day discussing "family support." Pt stated that he did not want to join group today due to him not having family and that he did not want to talk about the reasons why he does not have a good relationship with his mother and sisters. SW respected pts wish and encouraged pt to participate in group tomorrow. Pt agreed.
[2019-09-14 16:00] VITALS: BP 100/52
[2019-09-14 20:03] VITALS: BP 96/55
[2019-09-14] MEDS: ATORVASTATIN 10 MG TABLET PO SCH (21:36)
[2019-09-14] MEDS: MIRTAZAPINE 15 MG TABLET PO SCH (21:36)
[2019-09-15 08:00] VITALS: BP 102/54
[2019-09-15] MEDS: DUTASTERIDE (0.5 MG) 0.5 MG CAPSULE PO SCH (08:38)
[2019-09-15] MEDS: GABAPENTIN 300 MG CAPSULE PO SCH ×3 (08:39→16:32)
[2019-09-15] MEDS: LEVETIRACETAM (250 MG) 250 MG TABLET PO SCH ×2 (08:39→21:25)
[2019-09-15] MEDS: TAMSULOSIN 0.4 MG CAP.SR.24H PO SCH (08:39)
[2019-09-15] MEDS: BENZTROPINE MESYLATE (1 MG) 1 MG TABLET PO SCH ×2 (08:39→16:32)
[2019-09-15] MEDS: PHENYTOIN EXTENDED RELEASE 100 MG CAPSULE PO SCH ×2 (08:39→16:32)
[2019-09-15] MEDS: FERROUS SULFATE (325 MG) 325 MG/TAB TABLET PO SCH (08:39)
[2019-09-15] MEDS: NICOTINE PATCH (21MG) 21 MG PATCH.TD24 TD SCH (09:00)
[2019-09-15] MEDS: HALOPERIDOL 5 MG TABLET PO SCH ×2 (09:10→16:32)
--- NOTE | 2019-09-15 09:48 | NUR ---
PINKY FAXED SNF referral to [facility] Address: [address], [place] [address] for review.
--- NOTE | 2019-09-15 12:21 | NUR ---
SW received a call from Nurys, change control coordinator at [facility] Address: [address] [place] [address] stating pt was not accepted due to his current suicidal ideation.
--- NOTE | 2019-09-15 14:25 | NUR ---
PINKY contacted Nurys, health and wellness coordinator at [facility] Address: [address] [place] [address] and informed her pt is no longer having suicidal ideation. Nurys requested PINKY re-fax referral with updated clinicals for review.
--- NOTE | 2019-09-15 15:37 | NUR ---
PINKY FAXED updated clinicals to Nurys, marketing services coordinator at [facility] Address: [address] [facility], [place] [address] for review.
--- NOTE | 2019-09-15 15:44 | NUR ---
PINKY FAXED SNF REFERRAL to [facility] Address: [address] [facility], [place] [address] for review.
--- NOTE | 2019-09-15 15:49 | NUR ---
SW received a call from Nurys, program coordinator executive education at [facility] Address: [address] [place] [address] stating pt does not have a skilled need and therefore currently is unable to accept pt.
[2019-09-15 16:00] VITALS: BP 100/60
[2019-09-15 20:07] VITALS: BP 99/66
[2019-09-15] MEDS: MIRTAZAPINE 15 MG TABLET PO SCH (21:26)
[2019-09-15] MEDS: ATORVASTATIN 10 MG TABLET PO SCH (21:26)
[2019-09-16 08:00] VITALS: BP 100/54
[2019-09-16] MEDS: HALOPERIDOL 5 MG TABLET PO SCH ×2 (08:38→16:21)
[2019-09-16] MEDS: FERROUS SULFATE (325 MG) 325 MG/TAB TABLET PO SCH (08:38)
[2019-09-16] MEDS: LEVETIRACETAM (250 MG) 250 MG TABLET PO SCH ×2 (08:38→21:10)
[2019-09-16] MEDS: PHENYTOIN EXTENDED RELEASE 100 MG CAPSULE PO SCH ×2 (08:38→16:21)
[2019-09-16] MEDS: GABAPENTIN 300 MG CAPSULE PO SCH ×3 (08:38→16:22)
[2019-09-16] MEDS: BENZTROPINE MESYLATE (1 MG) 1 MG TABLET PO SCH ×2 (08:38→16:22)
[2019-09-16] MEDS: DUTASTERIDE (0.5 MG) 0.5 MG CAPSULE PO SCH (08:38)
[2019-09-16] MEDS: TAMSULOSIN 0.4 MG CAP.SR.24H PO SCH (08:38)
[2019-09-16] MEDS: NICOTINE PATCH (21MG) 21 MG PATCH.TD24 TD SCH (08:41)
--- NOTE | 2019-09-16 14:49 | NUR ---
PINKY FAXED SNF referral to Bronwyn, business process coordinator at [facility] Address: [address] [facility] [facility] [place] [address] for review.
--- NOTE | 2019-09-16 14:50 | NUR ---
PINKY faxed SNF referral to CJ, transitions rn care coordinator at [facility] Address: [place] [address] for review.
[2019-09-16 16:00] VITALS: BP 114/52
--- NOTE | 2019-09-16 16:06 | NUR ---
SW received a call from Jaimee, child care education coordinator at [facility] Address: [address] [place] [address] stating pt has been accepted to the facility.
--- NOTE | 2019-09-16 16:07 | NUR ---
SW received a call from ALINA, curriculum coordinator at [facility] Address: [place] [address] stating pt has been accepted pending bed availability.
--- NOTE | 2019-09-16 16:18 | NUR ---
INTERVENTION: SW spoke with pt and informed him that he has been accepted to [facility] Address: [address] [facility], [place] [address] and will be discharging tomorrow 09/17/19. Pt agreed with placement.
[2019-09-16] MEDS: MAG HYDROX/AL HYDROX/SIMETH 30 ML UDC PO PRN (17:23)
--- NOTE | 2019-09-16 17:24 | NUR ---
RN NOTE: PATIENT C/O INDIGESTION. ADMINISTERED PRN MAALOX.
[2019-09-16 20:00] VITALS: BP 107/65
[2019-09-16 20:30] VITALS: BP 107/65
[2019-09-16] MEDS: ATORVASTATIN 10 MG TABLET PO SCH (21:10)
[2019-09-16] MEDS ORDERED: MIRTAZAPINE 15 MG TABLET PO SCH (22:00)
--- NOTE | 2019-09-17 00:49 | NUR ---
rn gps notes patient states unable to sleep requesting for sleep medication. prn restoril given as ordered, will continue to monitor for effectiveness.
[2019-09-17] MEDS: MAG HYDROX/AL HYDROX/SIMETH 30 ML UDC PO PRN ×2 (07:37→12:10)
[2019-09-17 08:00] VITALS: BP 112/65
[2019-09-17] MEDS: HALOPERIDOL 5 MG TABLET PO SCH (08:09)
[2019-09-17] MEDS: LEVETIRACETAM (250 MG) 250 MG TABLET PO SCH (08:09)
[2019-09-17] MEDS: BENZTROPINE MESYLATE (1 MG) 1 MG TABLET PO SCH (08:10)
[2019-09-17] MEDS: GABAPENTIN 300 MG CAPSULE PO SCH ×3 (08:10→12:14)
[2019-09-17] MEDS: FERROUS SULFATE (325 MG) 325 MG/TAB TABLET PO SCH (08:10)
[2019-09-17] MEDS: DUTASTERIDE (0.5 MG) 0.5 MG CAPSULE PO SCH (08:10)
[2019-09-17] MEDS: TAMSULOSIN 0.4 MG CAP.SR.24H PO SCH (08:10)
[2019-09-17] MEDS: NICOTINE PATCH (21MG) 21 MG PATCH.TD24 TD SCH (08:10)
[2019-09-17] MEDS: PHENYTOIN EXTENDED RELEASE 100 MG CAPSULE PO SCH (08:10)
--- NOTE | 2019-09-17 10:00 | NUR ---
gps client engagement manager: visit dr. gonzalez here and aware of d'c to [place] this afternoon with order to continue home meds. orders carried out.
--- NOTE | 2019-09-17 10:11 | NUR ---
DISCHARGE NOTE: Pt will be discharged at 1:00pm [facility] [address] [facility] [address] . Pt has no family to notify. Pts mood is euthymic with congruent affect. Pt denied visual/auditory hallucinations and denied suicidal/homicidal ideation. Pt will be under the care of Psychiatrist: : Dr. Mackenzie Address: [address] [place] [address] and Airplane Gastank Liner Assembler: Dr Ledesma Address: [address] [place] [address] . The multidisciplinary exit care form was done, printed, signed, and given to the patient.
--- NOTE | 2019-09-17 11:30 | NUR ---
gps passenger solicitor: notes report given to jake (rn[facility] at [facility] of care. eta at 1300. pt aware.
--- NOTE | 2019-09-17 12:00 | NUR ---
gps therapist rrt: notes received order from dr. tyler per cn to discharge pt to [facility]. order acknowledged. pt stable for discharge. denies si/hi and auditory/visual hallucinations. discharge instructions given to pt and verbalized understanding. all belongings/valuables to be returned to pt prior to discharge.
--- NOTE | 2019-09-17 13:45 | NUR ---
gps stem cutter: notes ambulance here and report given to one of the crew.
--- NOTE | 2019-09-17 13:50 | NUR ---
gps field contact person: discharged pt stable for discharge. pt denies si/hi and auditory/visual hallucinations prior to discharge. all belongings and valuables returned to pt. all d'c papers copy given to the crew. discharge to snf via ambulance accompanied by 2 crew.
== END 2019-09-17 13:50 | DRG 885 ==
LOC: GPS 21:29
PROVIDERS: ADMIT Psychiatry & Neurology Psychiatry; ATTEND Nurse Practitioner Acute Care
DX: F25.9 Schizoaffective disorder, unspecified (principal); J44.9 Chronic obstructive pulmonary disease, unspecified; G40.909 Epilepsy, unspecified, not intractable, without status epilepticus; Z86.73 Personal history of transient ischemic attack (TIA), and cerebral infarction without residual deficits; D63.8 Anemia in other chronic diseases classified elsewhere; M19.90 Unspecified osteoarthritis, unspecified site; F31.9 Bipolar disorder, unspecified; F19.10 Other psychoactive substance abuse, uncomplicated; I10 Essential (primary) hypertension; F41.9 Anxiety disorder, unspecified; Z87.891 Personal history of nicotine dependence
CPT/HCPCS: 36415; 80048-TC; 80061-TC; 81000-TC; 85025-TC; 87081-TC

== ENCOUNTER 2019-10-20 19:51 | Inpatient (IN) | payer MEDICARE, OTHER ==
[~2019-10-20] VITALS: Ht 177.8 cm; Wt 65.8 kg
[2019-10-20] MEDS ORDERED: TEMAZEPAM 7.5 MG CAPSULE PO PRN (20:00)
[2019-10-20] MEDS ORDERED: MAG HYDROX/AL HYDROX/SIMETH 30 ML UDC PO PRN (20:00)
[2019-10-20] MEDS ORDERED: clonazePAM 0.5 MG TABLET PO PRN (20:00)
[2019-10-20] MEDS ORDERED: ACETAMINOPHEN 325 MG TABLET PO PRN (20:00)
[2019-10-20] MEDS ORDERED: BLOOD SUGAR DIAGNOSTIC 1 EACH STRIP IN ONE (20:00)
[2019-10-20] MEDS ORDERED: MAGNESIUM HYDROXIDE 30 ML UDC PO PRN (20:00)
[2019-10-20 20:26] VITALS: BP 111/75
[2019-10-21 01:11] VITALS: BP 111/75
[2019-10-21 08:00] VITALS: BP 121/69
[2019-10-21] MEDS ORDERED: MAGN400O6 PO (08:04)
[2019-10-21] MEDS ORDERED: BENZ1TAB7 PO (08:04)
[2019-10-21] MEDS ORDERED: GABA-534 PO (08:04)
[2019-10-21] MEDS ORDERED: ACET-868 PO (08:04)
[2019-10-21] MEDS ORDERED: MAG30ORA PO (08:04)
[2019-10-21] MEDS ORDERED: TEMA7.5C PO (08:04)
[2019-10-21] MEDS ORDERED: NICO-676 TD (08:04)
[2019-10-21] MEDS ORDERED: HALO5TAB8 PO (08:04)
[2019-10-21 08:07] LABS: CHOLESTEROL 146 mg/dL (<200); HDL CHOLESTEROL 67 mg/dL (40-60); LDL 74 mg/dL (0-99); TRIGLYCERIDES 48 mg/dL (30-150)
[2019-10-21 08:08] LABS: ALBUMIN 3.1 g/dL (3.4-5.0); BILIRUBIN,TOTAL 0.6 mg/dL (0.2-1.0); CALCIUM, SERUM 8.7 mg/dL (8.5-10.1); CREATININE 0.9 mg/dL (0.6-1.3); POTASSIUM 4.5 mmol/L (3.5-5.1); TOTAL PROTEIN, SERUM 7.2 g/dL (6.4-8.2)
[2019-10-21] MEDS ORDERED: MAGNESIUM HYDROXIDE 30 ML UDC PO PRN (08:30)
[2019-10-21] MEDS ORDERED: ACETAMINOPHEN 325 MG TABLET PO PRN (08:30)
[2019-10-21] MEDS ORDERED: clonazePAM 2 MG TABLET PO PRN (08:30)
[2019-10-21] MEDS ORDERED: MAG HYDROX/AL HYDROX/SIMETH 30 ML UDC PO PRN (08:30)
[2019-10-21] MEDS ORDERED: TEMAZEPAM 7.5 MG CAPSULE PO PRN (08:30)
[2019-10-21] MEDS: BENZTROPINE MESYLATE (1 MG) 1 MG TABLET PO SCH ×2 (09:07→16:49)
[2019-10-21] MEDS: FERROUS SULFATE (325 MG) 325 MG/TAB TABLET PO SCH (09:08)
[2019-10-21] MEDS: PHENYTOIN EXTENDED RELEASE 100 MG CAPSULE PO SCH ×2 (09:08→16:49)
[2019-10-21] MEDS: GABAPENTIN 300 MG CAPSULE PO SCH ×3 (09:08→16:49)
[2019-10-21] MEDS: LEVETIRACETAM (250 MG) 250 MG TABLET PO SCH ×2 (09:08→21:19)
[2019-10-21] MEDS: TAMSULOSIN 0.4 MG CAP.SR.24H PO SCH (09:08)
[2019-10-21] MEDS: DUTASTERIDE (0.5 MG) 0.5 MG CAPSULE PO SCH (09:08)
[2019-10-21] MEDS: NICOTINE PATCH (14MG) 14 MG PATCH.TD24 TD SCH (09:09)
[2019-10-21 16:00] VITALS: BP 100/59
[2019-10-21 20:37] VITALS: BP 98/63
[2019-10-21] MEDS: HALOPERIDOL 5 MG TABLET PO SCH (21:19)
[2019-10-21] MEDS: ATORVASTATIN 10 MG TABLET PO SCH (21:20)
[2019-10-21] MEDS: MIRTAZAPINE 15 MG TABLET PO SCH (21:20)
[2019-10-21] MEDS ORDERED: HALOPERIDOL 5 MG TABLET PO SCH (22:00)
[2019-10-21] MEDS ORDERED: MIRTAZAPINE 15 MG TABLET PO SCH (22:00)
[2019-10-22 08:00] VITALS: BP 100/63
[2019-10-22] MEDS: GABAPENTIN 300 MG CAPSULE PO SCH ×3 (08:25→17:54)
[2019-10-22] MEDS: TAMSULOSIN 0.4 MG CAP.SR.24H PO SCH (08:25)
[2019-10-22] MEDS: FERROUS SULFATE (325 MG) 325 MG/TAB TABLET PO SCH (08:25)
[2019-10-22] MEDS: BENZTROPINE MESYLATE (1 MG) 1 MG TABLET PO SCH ×2 (08:25→17:54)
[2019-10-22] MEDS: DUTASTERIDE (0.5 MG) 0.5 MG CAPSULE PO SCH (08:25)
[2019-10-22] MEDS: LEVETIRACETAM (250 MG) 250 MG TABLET PO SCH ×2 (08:25→21:20)
[2019-10-22] MEDS: PHENYTOIN EXTENDED RELEASE 100 MG CAPSULE PO SCH ×2 (08:27→17:54)
[2019-10-22] MEDS: NICOTINE PATCH (14MG) 14 MG PATCH.TD24 TD SCH (08:33)
[2019-10-22 16:00] VITALS: BP 99/61
[2019-10-22 19:54] VITALS: BP 101/57
[2019-10-22] MEDS: ATORVASTATIN 10 MG TABLET PO SCH (21:19)
[2019-10-22] MEDS: HALOPERIDOL 5 MG TABLET PO SCH (21:20)
[2019-10-22] MEDS: MIRTAZAPINE 15 MG TABLET PO SCH (21:21)
[2019-10-23 08:00] VITALS: BP 105/85
[2019-10-23] MEDS: DUTASTERIDE (0.5 MG) 0.5 MG CAPSULE PO SCH (08:57)
[2019-10-23] MEDS: PHENYTOIN EXTENDED RELEASE 100 MG CAPSULE PO SCH ×2 (08:57→18:32)
[2019-10-23] MEDS: GABAPENTIN 300 MG CAPSULE PO SCH ×3 (08:57→18:33)
[2019-10-23] MEDS: LEVETIRACETAM (250 MG) 250 MG TABLET PO SCH ×2 (08:57→21:22)
[2019-10-23] MEDS: TAMSULOSIN 0.4 MG CAP.SR.24H PO SCH (08:57)
[2019-10-23] MEDS: FERROUS SULFATE (325 MG) 325 MG/TAB TABLET PO SCH ×2 (08:57→18:30)
[2019-10-23] MEDS: BENZTROPINE MESYLATE (1 MG) 1 MG TABLET PO SCH ×2 (08:58→18:31)
[2019-10-23] MEDS: NICOTINE PATCH (14MG) 14 MG PATCH.TD24 TD SCH (08:58)
[2019-10-23 16:00] VITALS: BP 100/97
[2019-10-23 20:19] VITALS: BP 96/57
[2019-10-23] MEDS: ATORVASTATIN 10 MG TABLET PO SCH (21:24)
[2019-10-23] MEDS: HALOPERIDOL 5 MG TABLET PO SCH (21:56)
[2019-10-23] MEDS: MIRTAZAPINE 15 MG TABLET PO SCH (21:58)
[2019-10-24 08:00] VITALS: BP 141/50
[2019-10-24] MEDS: GABAPENTIN 300 MG CAPSULE PO SCH ×3 (08:15→16:34)
[2019-10-24] MEDS: TAMSULOSIN 0.4 MG CAP.SR.24H PO SCH (08:15)
[2019-10-24] MEDS: BENZTROPINE MESYLATE (1 MG) 1 MG TABLET PO SCH ×2 (08:15→16:34)
[2019-10-24] MEDS: DUTASTERIDE (0.5 MG) 0.5 MG CAPSULE PO SCH (08:15)
[2019-10-24] MEDS: LEVETIRACETAM (250 MG) 250 MG TABLET PO SCH ×2 (08:15→20:43)
[2019-10-24] MEDS: PHENYTOIN EXTENDED RELEASE 100 MG CAPSULE PO SCH ×2 (08:15→16:34)
[2019-10-24] MEDS: FERROUS SULFATE (325 MG) 325 MG/TAB TABLET PO SCH (08:16)
[2019-10-24] MEDS: NICOTINE PATCH (14MG) 14 MG PATCH.TD24 TD SCH (08:18)
[2019-10-24] MEDS: HYDROCODONE/APAP 5/325MG 1 EACH TABLET PO PRN (11:28)
[2019-10-24 16:00] VITALS: BP 105/53
[2019-10-24 20:13] VITALS: BP 91/42
[2019-10-24] MEDS: MIRTAZAPINE 15 MG TABLET PO SCH (21:57)
[2019-10-24] MEDS: ATORVASTATIN 10 MG TABLET PO SCH (21:58)
[2019-10-24] MEDS: HALOPERIDOL 5 MG TABLET PO SCH (21:58)
[2019-10-25] MEDS: HYDROCODONE/APAP 5/325MG 1 EACH TABLET PO PRN (06:58)
[2019-10-25 08:00] VITALS: BP 100/60
[2019-10-25] MEDS: BENZTROPINE MESYLATE (1 MG) 1 MG TABLET PO SCH ×2 (08:01→16:10)
[2019-10-25] MEDS: DUTASTERIDE (0.5 MG) 0.5 MG CAPSULE PO SCH (08:01)
[2019-10-25] MEDS: TAMSULOSIN 0.4 MG CAP.SR.24H PO SCH (08:01)
[2019-10-25] MEDS: FERROUS SULFATE (325 MG) 325 MG/TAB TABLET PO SCH (08:01)
[2019-10-25] MEDS: LEVETIRACETAM (250 MG) 250 MG TABLET PO SCH ×2 (08:02→21:30)
[2019-10-25] MEDS: GABAPENTIN 300 MG CAPSULE PO SCH ×3 (08:02→16:10)
[2019-10-25] MEDS: PHENYTOIN EXTENDED RELEASE 100 MG CAPSULE PO SCH ×2 (08:03→16:10)
[2019-10-25] MEDS: NICOTINE PATCH (14MG) 14 MG PATCH.TD24 TD SCH (09:00)
[2019-10-25 16:00] VITALS: BP 105/62
[2019-10-25 21:00] VITALS: BP 109/53
[2019-10-25] MEDS: HALOPERIDOL 5 MG TABLET PO SCH (21:30)
[2019-10-25] MEDS: ATORVASTATIN 10 MG TABLET PO SCH (21:31)
[2019-10-25] MEDS ORDERED: MIRTAZAPINE 15 MG TABLET PO SCH (22:00)
[2019-10-26 08:00] VITALS: BP 95/58
[2019-10-26] MEDS: TAMSULOSIN 0.4 MG CAP.SR.24H PO SCH (08:21)
[2019-10-26] MEDS: BENZTROPINE MESYLATE (1 MG) 1 MG TABLET PO SCH (08:21)
[2019-10-26] MEDS: DUTASTERIDE (0.5 MG) 0.5 MG CAPSULE PO SCH (08:21)
[2019-10-26] MEDS: LEVETIRACETAM (250 MG) 250 MG TABLET PO SCH (08:21)
[2019-10-26] MEDS: FERROUS SULFATE (325 MG) 325 MG/TAB TABLET PO SCH (08:21)
[2019-10-26] MEDS: GABAPENTIN 300 MG CAPSULE PO SCH ×2 (08:21→12:38)
[2019-10-26] MEDS: NICOTINE PATCH (14MG) 14 MG PATCH.TD24 TD SCH (08:22)
[2019-10-26] MEDS: PHENYTOIN EXTENDED RELEASE 100 MG CAPSULE PO SCH (08:24)
[2019-10-26] MEDS: HYDROCODONE/APAP 5/325MG 1 EACH TABLET PO PRN (12:38)
[2019-10-27] MEDS ORDERED: ERGOCALCIFEROL (VITAMIN D 2) 50,000 UNIT CAPSULE PO SCH (09:00)
== END 2019-10-26 13:00 | disposition home or self-care (01) | DRG 885 ==
LOC: GPS 19:51
PROVIDERS: ADMIT Psychiatry & Neurology Psychiatry; ATTEND Hospitalist
DX: F25.1 Schizoaffective disorder, depressive type (principal); E44.1 Mild protein-calorie malnutrition; R45.851 Suicidal ideations; Z79.899 Other long term (current) drug therapy; Z91.14 Patient's other noncompliance with medication regimen; Z87.891 Personal history of nicotine dependence; F41.9 Anxiety disorder, unspecified; G40.909 Epilepsy, unspecified, not intractable, without status epilepticus; E78.5 Hyperlipidemia, unspecified; Z68.20 Body mass index [BMI] 20.0-20.9, adult; G47.00 Insomnia, unspecified; J44.9 Chronic obstructive pulmonary disease, unspecified; I10 Essential (primary) hypertension; Z59.0 Homelessness; Z86.73 Personal history of transient ischemic attack (TIA), and cerebral infarction without residual deficits; F12.10 Cannabis abuse, uncomplicated; N40.0 Benign prostatic hyperplasia without lower urinary tract symptoms
CPT/HCPCS: 36415; 80053-TC; 80061-TC; 82962-TC; 87081-TC

== ENCOUNTER 2024-08-03 09:18 | Inpatient (IN) | payer MEDICARE, OTHER ==
[~2024-08-03] VITALS: Ht 177.8 cm; Wt 63.0 kg
[~2024-08-03 09:18] MED LIST changes: +ACET-868 PO; +BENZ1TAB7 PO; -CLON2TAB11 PO; -DUTA0.5C15 PO; +DUTA0.5C37 PO; +GABA-534 PO; +HALO5TAB8 PO; +MAG30ORA PO; +MAGN400O6 PO; +NICO-676 TD; +TEMA7.5C PO
[2024-08-03] MEDS: IV NS 0.9% 1,000 ML BAG IV ONE (09:30)
--- NOTE | 2024-08-03 09:32 | NUR ---
PT PRESENTED WITH LOW SBP<90 PRIOR TO ER SOH ARRIVAL RECEIVED NS @ 500CC BOLUS IN THE FIELD PLACED ON CONT EKG MONITORING UPON ARRIVAL; S.SHARLA 40'S TO 50'S LABS DRAWN CONT TO POC TO STABILIZE sbp>90
--- NOTE | 2024-08-03 09:50 | NUR ---
move sheet submitted
[2024-08-03 09:54] LABS: BASOPHILS % (AUTO) 0.9 % (0.0-2.0); EOSINOPHILS # (AUTO) 0.2 K/uL (0.0-0.7); EOSINOPHILS % (AUTO) 4.2 % (0.0-6.0); HEMATOCRIT 36 % (39-51); HEMOGLOBIN 10.8 g/dL (13.5-17.5); LYMPHOCYTES # (AUTO) 2.3 K/uL (0.8-4.8); LYMPHOCYTES % (AUTO) 57.7 % (20.0-44.0); MEAN CORPUSCULAR HEMOGLOBIN 18 PG (26.0-33.0); MEAN CORPUSCULAR HGB CONC 31 g/dl (31.0-36.0); MEAN CORPUSCULAR VOLUME 60 fL (80-96); MONOCYTES # (AUTO) 0.3 K/uL (0.1-1.30); MONOCYTES % (AUTO) 7.9 % (2.0-12.0); NEUTROPHILS # (AUTO) 1.1 K/uL (1.8-8.9); NEUTROPHILS % (AUTO) 29.3 % (43.0-81.0); PLATELET COUNT (AUTO) 130 K/uL (150-450); RED BLOOD CELL COUNT(AUTO) 5.89 MIL/uL (4.5-6.0); RED CELL DISTRIBUTION WIDTH 18.8 % (11.5-15.0); WHITE BLOOD COUNT (AUTO) 3.9 K/uL (4.3-11.0)
--- NOTE | 2024-08-03 09:59 | NUR ---
contacted nurse sup for bed assignment
[2024-08-03 10:09] LABS: LACTIC ACID 1.6 mmol/L (0.4-2.0)
[2024-08-03 10:13] LABS: CALCIUM, SERUM 8.5 mg/dL (8.5-10.1); CARBON DIOXIDE 31 mmol/L (21-32); CHLORIDE 106 mmol/L (98-107); CREATININE 0.9 mg/dL (0.6-1.3); GLUCOSE 54 mg/dL (74-106); POTASSIUM 4.1 mmol/L (3.5-5.1); SODIUM SERUM 141 mmol/L (136-145); UREA NITROGEN, BLOOD 18 mg/dL (7-18)
[2024-08-03] MEDS ORDERED: TEMA15CA PO (10:14)
[2024-08-03] MEDS ORDERED: CYAN-51 PO (10:14)
[2024-08-03] MEDS ORDERED: OLAN5TAB3 PO (10:14)
[2024-08-03] MEDS ORDERED: METO25TA6 PO (10:14)
[2024-08-03] MEDS ORDERED: ASPI-1420 PO (10:14)
[2024-08-03] MEDS ORDERED: MIRT-90 PO (10:14)
--- NOTE | 2024-08-03 11:07 | NUR ---
PLAN TO ADMIT TO INPATIENT TELE FOR Bradycardia and Low blood pressure CONDITION REMAINS STABLE AT THIS TIME AWAITING BED ASSIGNMENT
[2024-08-03 11:29] LABS: ANISOCYTOSIS 1+; BAND % (MANUAL) 1 % (0.0-5.0); EOSINOPHILS % (MANUAL) 8 % (0-4); HYPOCHROMASIA 1+; LYMPHOCYTES % (MANUAL) 36 % (16-48); MONOCYTES % (MANUAL) 6 % (0-11.0); NEUTROPHILS % (MANUAL) 49 (42-76); OVALOCYTES FEW; PLATELET ESTIMATE PLATELET CLUMPS SEEN; TARGET CELLS 1+
[2024-08-03] MEDS ORDERED: ACETAMINOPHEN 325 MG TABLET PO PRN (11:30)
[2024-08-03] MEDS ORDERED: Z GUARD REMEDY 4 OZ OINT TP PRN ×2 (11:30→14:15)
[2024-08-03] MEDS ORDERED: TEMAZEPAM 15 MG CAPSULE PO PRN (11:30)
[2024-08-03] MEDS ORDERED: MAGNESIUM HYDROXIDE 30 ML UDC PO PRN (11:30)
[2024-08-03] MEDS ORDERED: HYDROCODONE/APAP 5/325MG TABLET PO PRN (11:30)
[2024-08-03] MEDS ORDERED: MAG HYDROX/AL HYDROX/SIMETH 30 ML UDC PO PRN (11:30)
[2024-08-03] MEDS ORDERED: ONDANSETRON HCL/PF 4 MG/2 ML VIAL IVP PRN (11:30)
--- NOTE | 2024-08-03 13:21 | NUR ---
1ST CALL FOR REPORT ON HOLD FOR > 5 MIN STILL WATING TO GIVE REPORT
[2024-08-03 14:00] VITALS: BP 103/67; TEMP 98.1; O2SAT 97
--- NOTE | 2024-08-03 14:00 | NUR ---
ADMISSION NOTE ADMITTED PATIENT, TRANSPORTED VIA BED, ACCOMPANIED BY JONAS MEDEL. PATIENT IS AWAKE, A/O X4, VERBALLY RESPONSIVE AND ABLE TO MAKE NEEDS KNOWN. NO SIGNS OF ACUTE DISTRESS NOTED. ON ROOM AIR BREATHING EVEN AND UNLABORED. DENIES ANY PAIN AT THIS TIME. WITH IV ACCESS ON CIRO #18G SALINE LOCK, INTACT AND PATENT, FLUSHES WELL. VITAL SIGNS TAKEN AND RECORDED. ALL BELONGINGS ACCOUNTED FOR. SAFETY MEASURE IN PLACE. BED IN LOW AND LOCKED POSITION, SIDE RAILS UP X2, CALL LIGHT AND TABLE PLACED WITHIN EASY REACH. PLAN OF CARE ONGOING.
[2024-08-03] MEDS: IV NS 0.9% 1,000 ML IV PRN (15:06)
[2024-08-03 16:00] VITALS: BP 102/67; TEMP 98.1; O2SAT 98
[2024-08-03] MEDS: CEFTRIAXONE 1 G in IV D5W 50 ML IV SCH (16:55)
[2024-08-03] MEDS: AZITHROMYCIN 500 MG in IV D5W 250 ML IV SCH (17:36)
--- NOTE | 2024-08-03 19:15 | NUR ---
PORCELAIN ENAMEL LABORER OPENING NOTES; RECEIVED PATIENT FOR CONTINUITY OF CARE RESTING ON BED. A/O X4 ABLE TO VERBALIZED NEEDS BUT SEEMS VERY LAZY TO RESPOND. ON RA, TOLERATING WELL BREATHES EVENLY AND UNLABORED. NO SOB/ NOR S/SX OF ACUTE DISTRESS AT THIS TIME. ON CONTINUOUS TELE MONITORING. IV ACCESS ON CIRO # 18G, INTACT AND PATENT. NO COMPLAINTS OF PAIN/DISCOMFORT AT THE MOMENT. MAINTAIN ALL SAFETY MEASURES IN PLACE; BED IN LOWEST AND LOCKED POSITION, BED ALARM ON, HOB ELEVATED, SIDE RAILS UPX2, CALL LIGHT AND TABLE TRAY WITHIN EASY REACH. PLAN OF CARE ONGOING.
--- NOTE | 2024-08-03 19:30 | NUR ---
RN NOTE TELE MONITOR READING SINUS BRADYCARDIA WITH PAC PVC AND PAUSES, HR 58-59 BPM, NO CARDIAC DISTRESS NOTED. ENDORSE TO BUTTONHOLER NURSE FOR MONITORING
--- NOTE | 2024-08-03 19:30 | NUR ---
CLOSING NOTE PATIENT IS AWAKE, A/O X4, ABLE TO MAKE NEEDS KNOWN. NO SIGNS OF ACUTE DISTRESS NOTED. ON ROOM AIR BREATHING EVEN AND UNLABORED. DENIES ANY PAIN AT THIS TIME. WITH IV ACCESS ON CIRO #18G WITH NS AT 120 ML/HOUR, INTACT, PATENT, INFUSING WELL. PATIENT REFUSED SKIN ASSESSMENT BUT VERBALIZED HE DOES NOT HAVE ANY OPEN WOUNDS. SAFETY MEASURES IN PLACE. BED IN LOW AND LOCKED POSITION, SIDE RAILS UP X2, CALL LIGHT AND TABLE PLACED WITHIN EASY REACH. ENDORSE PLAN OF CARE TO ARCHITECTURAL DESIGN LECTURER NURSE
[2024-08-03 20:00] VITALS: BP 98/52; TEMP 98.2; O2SAT 95
[2024-08-03 20:37] VITALS: BP 92/58; TEMP 98.2; O2SAT 95
--- NOTE | 2024-08-03 20:40 | NUR ---
RN NOTE; HEART/PULSE RATE NOTED TO BE SHARLA @ 2BPM, ASSESSED PATIENT IF HE HAD CHEST PAIN,, ETC AND RESPONDED ALL NEGATIVE. CHANGE ALL THE TELE CABLES AND LEADS THUS HEART RATE BECOMES 52 BPM. WILL CONTINUE TO MONITOR PATIENT CLOSELY
[2024-08-03] MEDS: MIRTAZAPINE 15 MG TABLET PO SCH (21:13)
[2024-08-03] MEDS: LEVETIRACETAM (250 MG) 250 MG TABLET PO SCH (21:13)
[2024-08-03] MEDS: OLANZAPINE 5 MG TABLET PO SCH (21:14)
[2024-08-04] VITALS (9 sets, daily range): BP systolic 91–103; BP diastolic 50–62; TEMP 97.5–98.6; O2SAT 97–100
--- NOTE | 2024-08-04 00:15 | NUR ---
RN NOTE; PATIENT REFUSED TO TAKE HIS TEMPERATURE.
--- NOTE | 2024-08-04 02:20 | NUR ---
RN NOTE; PATIENT REFER TO HOSPITALIST ON DUTY(DR SNYDER) RE; BRADYCARDIA (37-48) WITH PAC'S, PVC'S AND OCCASIONAL PAUSING BOTH ON AWAKE/SLEEPING CONDITION. ADVISED; TO CONTINUE MONITOR, EKG IN AM, CBC, BMP AND MG DETERMINATION.
--- NOTE | 2024-08-04 05:00 | NUR ---
RN NOTE; PATIENT REFUSED TO HAVE EKG DONE AT THIS MOMENT, RISK AND BENEFITS EXPLAINED... RT JAMI WITNESSED.
--- NOTE | 2024-08-04 05:09 | NUR ---
RT NOTE PATIENT REFUSING EKG AT THIS TIME. PT STATES TO "COME BACK LATER." DESPITE ENCOURAGEMENT PATIENT STILL REFUSING TO HAVE EKG DONE. PRIMARY NURSE IS AWARE.
[2024-08-04 06:22] LABS: BASOPHILS % (AUTO) 1.1 % (0.0-2.0); EOSINOPHILS # (AUTO) 0.2 K/uL (0.0-0.7); EOSINOPHILS % (AUTO) 4.1 % (0.0-6.0); HEMATOCRIT 34 % (39-51); HEMOGLOBIN 10.3 g/dL (13.5-17.5); LYMPHOCYTES # (AUTO) 2.5 K/uL (0.8-4.8); LYMPHOCYTES % (AUTO) 65.4 % (20.0-44.0); MEAN CORPUSCULAR HEMOGLOBIN 18 PG (26.0-33.0); MEAN CORPUSCULAR HGB CONC 31 g/dl (31.0-36.0); MEAN CORPUSCULAR VOLUME 60 fL (80-96); MONOCYTES # (AUTO) 0.3 K/uL (0.1-1.30); MONOCYTES % (AUTO) 6.9 % (2.0-12.0); NEUTROPHILS # (AUTO) 0.9 K/uL (1.8-8.9); NEUTROPHILS % (AUTO) 22.5 % (43.0-81.0); PLATELET COUNT (AUTO) 116 K/uL (150-450); RED BLOOD CELL COUNT(AUTO) 5.56 MIL/uL (4.5-6.0); RED CELL DISTRIBUTION WIDTH 18.3 % (11.5-15.0); WHITE BLOOD COUNT (AUTO) 3.8 K/uL (4.3-11.0)
--- NOTE | 2024-08-04 06:31 | NUR ---
REHAB MANAGER CLOSING NOTES; 320-1 LEFT PATIENT RESTING ON BED ASLEEP BUT EASILY AWAKE BY STIMULI. A/O X4 ABLE TO MAKE NEEDS KNOWN, ALWAYS ANGRY AND QUITE UNCOOPERATIVE. STABLE THROUGHOUT SHIFT ON RA, TOLERATING WELL @ 100 % SPO2 BREATHES EVENLY AND UNLABORED. NO SOB/ NOR S/SX OF ACUTE DISTRESS AT THIS TIME. ON CONTINUOUS TELE MONITORING WITH CURRENT READING OF SB, WITH PAC'S, PVC'S, OCCL PAUSING @ 36-40 BPM. IV ACCESS ON CIRO # 18G, INTACT PATENT AND INFUSING WELL WITH NS @ 120ML/HR. NO COMPLAINTS OF PAIN/DISCOMFORT AT THE MOMENT. ALL NURSING NEEDS AND CARE ANTICIPATED AND MET, ALL DUE MEDS GIVEN ORDERED. KEPT PATIENT CLEAN, WARM AND COMFORTABLE. MAINTAIN ALL SAFETY MEASURES IN PLACE; BED IN LOWEST AND LOCKED POSITION, BED ALARM ON, HOB ELEVATED, SIDE RAILS UPX2, CALL LIGHT AND TABLE TRAY WITHIN EASY REACH. PLAN OF CARE ONGOING, ENDORSE TO AM SHIFT NURSE FOR SHIMA.
[2024-08-04 06:34] LABS: CALCIUM, SERUM 8.5 mg/dL (8.5-10.1); CREATININE 0.9 mg/dL (0.6-1.3); MAGNESIUM 1.6 mg/dL (1.8-2.4); POTASSIUM 4.3 mmol/L (3.5-5.1)
--- NOTE | 2024-08-04 07:50 | NUR ---
NAVIGATION OFFICER OPENING NOTES RECEIVED PATIENT RESTING IN BED. ASLEEP BUT EASILY AWAKEN BY AUDITORY STIMULI. ALERT, ORIENTED X4, ABLE TO MAKE NEEDS KNOWN, EASILY IRRITATED AND REQUESTED TO LET HIM SLEEP. STABLE ON RA, TOLERATING WELL @ 96 % SPO2 BREATHES EVENLY AND UNLABORED. ON TELE MONITORING WITH CURRENT READING OF SB IN THE 40-50S BPM. NO CARDIAC AND RESPIRATORY DISTRESS NOTED AT THIS TIME. IV ACCESS ON CIRO # 18G, INTACT PATENT AND INFUSING WELL WITH NS @ 120 ML/HR. DENIED PAIN NOR DISCOMFORT AT THIS TIME. ALL SAFETY MEASURES IN PLACE; BED IN LOWEST AND LOCKED POSITION, BED ALARM ON, HOB ELEVATED, SIDE RAILS UPX2, CALL LIGHT AND TABLE TRAY WITHIN EASY REACH. WILL CONTINUE PLAN OF CARE.
[2024-08-04 08:11] LABS: BASOPHILS % (MANUAL) 0 % (0.0-2.0); EOSINOPHILS % (MANUAL) 8 % (0-4); LYMPHOCYTES % (MANUAL) 32 % (16-48); MONOCYTES % (MANUAL) 15 % (0-11.0); NEUTROPHILS % (MANUAL) 45 (42-76); PLATELET ESTIMATE DECREASED
[2024-08-04 08:12] LABS: ANISOCYTOSIS 2+; OVALOCYTES 1+; TARGET CELLS 1+
[2024-08-04] MEDS: FERROUS SULFATE (325 MG) 325 MG/TAB TABLET PO SCH (08:19)
[2024-08-04] MEDS: TAMSULOSIN 0.4 MG CAP.SR.24H PO SCH (08:19)
[2024-08-04] MEDS: DUTASTERIDE (0.5 MG) 0.5 MG CAPSULE PO SCH (08:19)
[2024-08-04] MEDS: ASPIRIN EC 81 MG TABLET.DR PO SCH (08:19)
[2024-08-04] MEDS: ATORVASTATIN 10 MG TABLET PO SCH (08:19)
[2024-08-04] MEDS: CYANOCOBALAMIN 500 MCG TABLET PO SCH (08:19)
[2024-08-04] MEDS ORDERED: DUTASTERIDE (0.5 MG) 0.5 MG CAPSULE PO SCH (09:00)
--- NOTE | 2024-08-04 09:14 | NUR ---
RN NOTES - RESPIRATORY THERAPIST AT BEDSIDE FOR EKG, PATIENT AGREED THIS TIME.
[2024-08-04] MEDS: MAGNESIUM OXIDE 400 MG TABLET PO ONE (09:51)
--- NOTE | 2024-08-04 10:19 | NUR ---
RN NOTES - PATIENT REQUESTED TO PAUSE NS INFUSION AT THE MOMENT, EDUCATION PROVIDED, PATIENT INSISTED, PATIENT IS DRINKING FLUIDS AT THE MOMENT, PROVIDED APPLE JUICE WELL. WILL CONTINUE TO MONITOR.
--- NOTE | 2024-08-04 12:42 | NUR ---
hop farm worker consultation: hop farm worker consultation requested for homelessness. The patient was alert and oriented x3. Patient was calm and cooperative during the assessment. Patient had a flat effect. The patient stated prior to being at the hospital he felt like his heart was beating at an abnormal pace and began to worry. The patient stated he was [facility] for the past 4 days and was receiving treatment there. Patient stated he is homeless and takes care of himself. Patient stated he has been homeless for the past 4 years and uses a walker. Patient said his source of income comes from [employer] to 1,200 dollars. Patient denied having any mental health illnesses. Patient stated he abuses marijuana and alcohol 3-4 times a week. Patient denied having any visual/auditory hallucinations. Patient denied any SI/HI ideation. Patient was accepting of homeless walk in resources and substance abuse resources. The patient refused to sign the homeless waiver and the school social worker placed the homeless waiver in the patient's chart. Patient stated he would like to be placed at SNF if that option is available to him. The school social worker informed CM of his request. DC PLAN: hop farm worker will follow up with CM in regards to patients discharge plan. Resources provided: Shelters: [place] [employer] Provider: [employer] [place] Address: [address], [facility] # of Beds: 47 Population Served: [address] Lexi Leyva [place] Provider: [facility] Address[address] [address]# of Beds: 66 Population Served: [facility] [employer] [place] Provider: [facility] Address: [address] [id number] # of Beds: 56 Population Served: [facility] [place] Provider: [facility] Address: [address] [phone] # of Beds: 49 Population Served: [facility] Substance Abuse resources provided included: [facility] Substance Abuse Self-Helpline (SASH) ; [facility] [id number] [facility] [id number] ; [facility] [address] [facility] [address]
--- NOTE | 2024-08-04 13:38 | NUR ---
RN NOTES - IVF RESUMED
--- NOTE | 2024-08-04 18:50 | NUR ---
STERILE PROCESSING TECHNOLOGIST CLOSING NOTES LEFT PATIENT RESTING IN BED, ALERT, ORIENTED X4, ABLE TO MAKE NEEDS KNOWN, COOPERATIVE. STABLE ON RA, TOLERATING WELL @ 96 % SPO2 BREATHES EVENLY AND UNLABORED. MAINTAINED ON TELE MONITORING WITH CURRENT READING OF SB IN THE 40-50S BPM. NO CARDIAC AND RESPIRATORY DISTRESS NOTED AT THIS TIME. MD IS AWARE. IV ACCESS ON CIRO # 18G, INTACT PATENT AND INFUSING WELL WITH NS @ 120 ML/HR. DENIED PAIN NOR DISCOMFORT AT THIS TIME. ALL DUE MEDS GIVEN, ALL NEEDS ATTENDED. ALL SAFETY MEASURES IN MAINTAINED; BED IN LOWEST AND LOCKED POSITION, BED ALARM ON, HOB ELEVATED, SIDE RAILS UPX2, CALL LIGHT AND TABLE TRAY WITHIN EASY REACH. WILL ENDORSE TO STUDENT ACTIVITIES DIRECTOR NURSE.
--- NOTE | 2024-08-04 19:15 | NUR ---
TANK CLEANING SUPERVISOR OPENING NOTES RECEIVED AWAKE LYING ON BED. A/O X3-4 WITH FORGETFULNESS. ABLE TO MAKE NEEDS KNOWN. ON ROOM AIR TOLERATING WELL WITHOUT ANY RESPIRATORY DISTRESS NOTED. ON SUPERVISOR REACTOR FUELING WITH A READING OF SB @ 57BPM. WITH IV ACCESS AT CIRO #18G RUNNING NS @ 120 ML/HR. SAFETY PRECAUTIONS MAINTAINED. SIDE RAILS X2. CALL LIGHT WITHIN REACH. BED LOCKED AND AT LOWEST POSITION. WILL CONTINUE PLAN OF CARE.
[2024-08-05 01:11] VITALS: BP 90/61; TEMP 98.2; O2SAT 95; O2SAT 98
[2024-08-05 04:44] VITALS: BP 100/70; TEMP 98.2; O2SAT 99
[2024-08-05 06:31] LABS: BASOPHILS # (AUTO) 0.1 K/uL (0.0-0.2); BASOPHILS % (AUTO) 1.8 % (0.0-2.0); EOSINOPHILS # (AUTO) 0.2 K/uL (0.0-0.7); EOSINOPHILS % (AUTO) 6.3 % (0.0-6.0); HEMATOCRIT 33 % (39-51); HEMOGLOBIN 10.1 g/dL (13.5-17.5); LYMPHOCYTES # (AUTO) 1.2 K/uL (0.8-4.8); LYMPHOCYTES % (AUTO) 32.3 % (20.0-44.0); MEAN CORPUSCULAR HEMOGLOBIN 19 PG (26.0-33.0); MEAN CORPUSCULAR HGB CONC 31 g/dl (31.0-36.0); MEAN CORPUSCULAR VOLUME 60 fL (80-96); MONOCYTES # (AUTO) 0.5 K/uL (0.1-1.30); MONOCYTES % (AUTO) 14.4 % (2.0-12.0); NEUTROPHILS # (AUTO) 1.7 K/uL (1.8-8.9); NEUTROPHILS % (AUTO) 45.2 % (43.0-81.0); PLATELET COUNT (AUTO) 105 K/uL (150-450); RED CELL DISTRIBUTION WIDTH 18.3 % (11.5-15.0); WHITE BLOOD COUNT (AUTO) 3.7 K/uL (4.3-11.0)
--- NOTE | 2024-08-05 06:45 | NUR ---
BRUSH HOLDER ASSEMBLER CLOSING NOTES PATIENT AWAKE LYING ON BED. A/O X3-4 WITH FORGETFULNESS. ABLE TO MAKE NEEDS KNOWN. ON ROOM AIR TOLERATED WELL WITHOUT ANY RESPIRATORY DISTRESS NOTED THE WHOLE SHIFT. ON MEAT STUFFER WITH A READING OF SB WITH PVC @ 51BPM. WITH IV ACCESS AT LEFT FOREARM #22G RUNNING NS @ 120 ML/HR. SAFETY PRECAUTIONS MAINTAINED THE WHOLE SHIFT. NEEDS ATTENDED. DUE MEDS GIVEN. KEPT COMFORTABLE. MORNING CARE RENDERED. ENDORSED TO MORNING SHIFT NURSE.
[2024-08-05 06:53] LABS: CALCIUM, SERUM 8.7 mg/dL (8.5-10.1); CREATININE 0.8 mg/dL (0.6-1.3); POTASSIUM 4.2 mmol/L (3.5-5.1)
--- NOTE | 2024-08-05 07:30 | NUR ---
DIVE SUPERINTENDENT OPENING NOTES PATIENT IS AWAKE LYING ON BED. A/O X3-4 WITH FORGETFULNESS. ABLE TO MAKE NEEDS KNOWN. ON ROOM AIR TOLERATED WELL WITHOUT ANY RESPIRATORY DISTRESS NOTED THE WHOLE SHIFT. ON FERRYBOAT PILOT WITH A READING OF SB WITH PVC @ 58BPM. WITH IV ACCESS AT LEFT FOREARM #22G RUNNING NS @ 120 ML/HR. FOR PT EVAL TODAY. SAFETY PRECAUTIONS MAINTAINED. SIDE RAILS X2. CALL LIGHT WITHIN REACH. BED LOCKED AND AT LOWEST POSITION. WILL CONTINUE PLAN OF CARE.
[2024-08-05 08:00] VITALS: BP 110/66; TEMP 97.7; O2SAT 100
--- NOTE | 2024-08-05 12:11 | NUR ---
HOME SERVICE TECHNICIANSECTION LEADER NOTES - AMA PATIENT WAS UNCOOPERATIVE AND DECIDED TO SIGN AMA DUE TO BELIEF THAT HE NEEDS TO GO BACK AND TAKE HIS STUFF BY HIMSELF. SW WAS INFORMED AND PATIENT STILL INSISTED. CHARGE NURSE WAS INFORMED. PROS AND RISK ARE EXPLAINED. NO FILIPE WAS INFORMED. PATIENTS VITALS ARE 123/82 MMHG, PULSE IS 52, RR IS 18, PULSE OX IS 100%. PATIENT SIGNED AMA, CHARGE NURSE WAS WITNESSED. IV SITE REMOVED AND SECURED WITH C/D/I DRESSING. HOSPITAL ARM BAND REMOVED WELL. PATIENT WAS AMBULATORY WITH STEADY GAIT. LEFT THE UNIT AT 12:05 PM.
[2024-08-05 12:26] LABS: APPEARANCE,URINE CLEAR (CLEAR); BILIRUBIN,URINE NEGATIVE (NEGATIVE); BLOOD, URINE NEGATIVE Ery/uL (NEGATIVE); COLOR,URINE YELLOW (YELLOW); KETONES,URINE NEGATIVE (NEGATIVE); LEUKOCYTE ESTERASE ,URINE NEGATIVE (NEGATIVE); NITRITE, URINE NEGATIVE (NEGATIVE); PH,URINE 6.5 (5.0-8.0); PROTEIN,URINE NEGATIVE (NEGATIVE); UGLUCOSE NEGATIVE (NEGATIVE)
[2024-08-05 12:31] LABS: ADD URINE CULTURE NO; BACTERIA,URINE Rare /HPF (None Seen); RBC,URINE 0-2 /HPF (0-2); SQUAMOUS EPITHELIAL CELL,UR None Seen /HPF (None Seen); WBC,URINE 0-2 /HPF (0-3)
[2024-08-07] MEDS ORDERED: ERGOCALCIFEROL (VITAMIN D 2) 50,000 UNIT CAPSULE PO SCH (09:00)
== END 2024-08-05 12:30 | disposition left against medical advice (07) | DRG 193 ==
LOC: ER 09:20 → TELE 14:39
PROVIDERS: ADMIT Nurse Practitioner Acute Care; ATTEND Nurse Practitioner Acute Care
DX: J15.9 Unspecified bacterial pneumonia (principal); E43 Unspecified severe protein-calorie malnutrition; Z68.1 Body mass index [BMI] 19.9 or less, adult; R64 Cachexia; Z59.02 Unsheltered homelessness; E86.1 Hypovolemia; R00.1 Bradycardia, unspecified; R26.89 Other abnormalities of gait and mobility; G40.909 Epilepsy, unspecified, not intractable, without status epilepticus; Z86.73 Personal history of transient ischemic attack (TIA), and cerebral infarction without residual deficits; N40.0 Benign prostatic hyperplasia without lower urinary tract symptoms; I10 Essential (primary) hypertension; Z79.899 Other long term (current) drug therapy; F99 Mental disorder, not otherwise specified; Z53.29 Procedure and treatment not carried out because of patient's decision for other reasons; F20.9 Schizophrenia, unspecified; E78.5 Hyperlipidemia, unspecified; J44.9 Chronic obstructive pulmonary disease, unspecified; F17.290 Nicotine dependence, other tobacco product, uncomplicated; I95.9 Hypotension, unspecified
CPT/HCPCS: 36415; 71045-TC; 80048-TC; 81001; 83605-TC; 83735-TC; 84484-TC; 85025-TC; 93307-TC; 97110-TC; 97116-TC; 97530-TC; G0378; J0456; J0696; J7030; J7060

== ENCOUNTER 2024-08-05 16:40 | Inpatient (IN) | payer MEDICARE, OTHER ==
[~2024-08-05] VITALS: Ht 177.8 cm; Wt 49.9 kg
[~2024-08-05 16:40] MED LIST changes: -ACET-868 PO; -ALBU18HF2 INH; +ASPI-1420 PO; -BENZ1TAB7 PO; +CYAN-51 PO; -GABA-534 PO; -HALO5TAB8 PO; -MAG30ORA PO; -MAGN400O6 PO; +METO25TA6 PO; +MIRT-90 PO; -NICO-676 TD; +OLAN5TAB3 PO; -PHEN100C12 PO; +TEMA15CA PO; -TEMA7.5C PO
[2024-08-05 17:34] LABS: BASOPHILS # (AUTO) 0.1 K/uL (0.0-0.2); BASOPHILS % (AUTO) 1.2 % (0.0-2.0); EOSINOPHILS # (AUTO) 0.2 K/uL (0.0-0.7); HEMATOCRIT 34 % (39-51); HEMOGLOBIN 10.5 g/dL (13.5-17.5); LYMPHOCYTES # (AUTO) 0.6 K/uL (0.8-4.8); LYMPHOCYTES % (AUTO) 13.6 % (20.0-44.0); MEAN CORPUSCULAR HEMOGLOBIN 19 PG (26.0-33.0); MEAN CORPUSCULAR HGB CONC 31 g/dl (31.0-36.0); MEAN CORPUSCULAR VOLUME 61 fL (80-96); MONOCYTES # (AUTO) 0.9 K/uL (0.1-1.30); MONOCYTES % (AUTO) 19.6 % (2.0-12.0); NEUTROPHILS # (AUTO) 2.8 K/uL (1.8-8.9); NEUTROPHILS % (AUTO) 61.6 % (43.0-81.0); PLATELET COUNT (AUTO) 116 K/uL (150-450); RED BLOOD CELL COUNT(AUTO) 5.56 MIL/uL (4.5-6.0); RED CELL DISTRIBUTION WIDTH 18.5 % (11.5-15.0); WHITE BLOOD COUNT (AUTO) 4.6 K/uL (4.3-11.0)
[2024-08-05 17:45] LABS: CALCIUM, SERUM 8.4 mg/dL (8.5-10.1); CARBON DIOXIDE 28 mmol/L (21-32); CHLORIDE 105 mmol/L (98-107); CREATININE 0.9 mg/dL (0.6-1.3); GLUCOSE 83 mg/dL (74-106); POTASSIUM 3.8 mmol/L (3.5-5.1); SODIUM SERUM 138 mmol/L (136-145); UREA NITROGEN, BLOOD 12 mg/dL (7-18)
[2024-08-05] MEDS: IV NS 0.9% 1,000 ML BAG IV ONE (17:50)
[2024-08-05] MEDS ORDERED: IV NS 0.9% 1,000 ML IV PRN (20:30)
[2024-08-05] MEDS ORDERED: MAGNESIUM HYDROXIDE 30 ML UDC PO PRN (20:30)
[2024-08-05] MEDS ORDERED: ZOLPIDEM TARTRATE 5 MG TABLET PO PRN (20:30)
[2024-08-05] MEDS ORDERED: ACETAMINOPHEN 325 MG TABLET PO PRN (20:30)
[2024-08-05] MEDS ORDERED: ONDANSETRON HCL/PF 4 MG/2 ML VIAL IVP PRN (20:30)
[2024-08-05] MEDS ORDERED: MAG HYDROX/AL HYDROX/SIMETH 30 ML UDC PO PRN (20:30)
[2024-08-05] MEDS ORDERED: Z GUARD REMEDY 4 OZ OINT TP PRN (20:30)
[2024-08-05 21:15] VITALS: O2SAT 98
[2024-08-05 21:44] LABS: ANISOCYTOSIS 1+; EOSINOPHILS % (MANUAL) 3 % (0-4); HYPOCHROMASIA 1+; LYMPHOCYTES % (MANUAL) 29 % (16-48); MONOCYTES % (MANUAL) 9 % (0-11.0); NEUTROPHILS % (MANUAL) 59 (42-76); OVALOCYTES 1+; PLATELET ESTIMATE DECRE; TEAR DROP CELLS 2+
[2024-08-05 22:47] VITALS: BP 106/67; TEMP 98.2; O2SAT 92
[2024-08-06 00:19] VITALS: BP 108/67; TEMP 98.8; O2SAT 100
[2024-08-06 04:28] VITALS: BP 128/78; TEMP 98.4; O2SAT 98
[2024-08-06 06:16] LABS: BASOPHILS # (AUTO) 0.1 K/uL (0.0-0.2); BASOPHILS % (AUTO) 2.2 % (0.0-2.0); EOSINOPHILS # (AUTO) 0.2 K/uL (0.0-0.7); EOSINOPHILS % (AUTO) 3.8 % (0.0-6.0); HEMATOCRIT 36 % (39-51); LYMPHOCYTES % (AUTO) 22.2 % (20.0-44.0); MEAN CORPUSCULAR HEMOGLOBIN 19 PG (26.0-33.0); MEAN CORPUSCULAR HGB CONC 31 g/dl (31.0-36.0); MEAN CORPUSCULAR VOLUME 61 fL (80-96); MONOCYTES # (AUTO) 0.7 K/uL (0.1-1.30); MONOCYTES % (AUTO) 15.4 % (2.0-12.0); NEUTROPHILS # (AUTO) 2.6 K/uL (1.8-8.9); NEUTROPHILS % (AUTO) 56.4 % (43.0-81.0); PLATELET COUNT (AUTO) 138 K/uL (150-450); RED BLOOD CELL COUNT(AUTO) 5.91 MIL/uL (4.5-6.0); RED CELL DISTRIBUTION WIDTH 18.4 % (11.5-15.0); WHITE BLOOD COUNT (AUTO) 4.6 K/uL (4.3-11.0)
[2024-08-06 06:22] LABS: ALBUMIN 3.5 g/dL (3.4-5.0); BILIRUBIN,DIRECT 0.2 mg/dL (0.0-0.2); BILIRUBIN,TOTAL 0.5 mg/dL (0.2-1.0); CREATININE 0.9 mg/dL (0.6-1.3); MAGNESIUM 1.9 mg/dL (1.8-2.4); PHOSPHORUS 4.8 mg/dL (2.5-4.9); POTASSIUM 4.3 mmol/L (3.5-5.1); TOTAL PROTEIN, SERUM 8.1 g/dL (6.4-8.2)
[2024-08-06] MEDS ORDERED: ERGOCALCIFEROL (VITAMIN D 2) 50,000 UNIT CAPSULE PO SCH (07:00)
[2024-08-06 07:28] LABS: THYROID STIMULATING HORMONE 3.72 uIU/mL (0.358-3.74)
[2024-08-06 07:30] VITALS: BP 122/71; TEMP 99.1; O2SAT 100
[2024-08-06 07:42] LABS: ANISOCYTOSIS 1+; BASOPHILS % (MANUAL) 0 % (0.0-2.0); EOSINOPHILS % (MANUAL) 3 % (0-4); HYPOCHROMASIA FEW; LYMPHOCYTES % (MANUAL) 33 % (16-48); MONOCYTES % (MANUAL) 15 % (0-11.0); NEUTROPHILS % (MANUAL) 49 (42-76); OVALOCYTES 1+; PLATELET ESTIMATE DECREASED; TARGET CELLS 1+
[2024-08-06] MEDS: PANTOPRAZOLE 40 MG TABLET.DR PO SCH (07:44)
[2024-08-06] MEDS ORDERED: TAMSULOSIN 0.4 MG CAP.SR.24H PO SCH (09:00)
[2024-08-06] MEDS ORDERED: METOPROLOL TARTRATE 25 MG TABLET PO SCH (09:00)
[2024-08-06] MEDS ORDERED: CYANOCOBALAMIN 500 MCG TABLET PO SCH (09:00)
[2024-08-06] MEDS ORDERED: FERROUS SULFATE (325 MG) 325 MG/TAB TABLET PO SCH (09:00)
[2024-08-06] MEDS ORDERED: ASPIRIN EC 81 MG TABLET.DR PO SCH (09:00)
[2024-08-06] MEDS ORDERED: ATORVASTATIN 10 MG TABLET PO SCH (09:00)
[2024-08-06] MEDS ORDERED: LEVETIRACETAM (250 MG) 250 MG TABLET PO SCH (09:00)
[2024-08-06] MEDS ORDERED: DUTASTERIDE (0.5 MG) 0.5 MG CAPSULE PO SCH (09:00)
[2024-08-06] MEDS ORDERED: MIRTAZAPINE 15 MG TABLET PO SCH (22:00)
[2024-08-06] MEDS ORDERED: OLANZAPINE 5 MG TABLET PO SCH (22:00)
== END 2024-08-06 12:30 | disposition left against medical advice (07) | DRG 641 ==
LOC: ER 18:17 → TELE 21:29
PROVIDERS: ADMIT Nurse Practitioner Family; ATTEND Nurse Practitioner Acute Care
DX: E86.0 Dehydration (principal); Z59.00 Homelessness unspecified; I95.89 Other hypotension; E86.1 Hypovolemia; F20.9 Schizophrenia, unspecified; G40.909 Epilepsy, unspecified, not intractable, without status epilepticus; Z79.899 Other long term (current) drug therapy; I10 Essential (primary) hypertension; Z87.81 Personal history of (healed) traumatic fracture; F41.9 Anxiety disorder, unspecified; Z53.29 Procedure and treatment not carried out because of patient's decision for other reasons; Z87.891 Personal history of nicotine dependence; Z86.19 Personal history of other infectious and parasitic diseases; Z88.8 Allergy status to other drugs, medicaments and biological substances; Z98.890 Other specified postprocedural states; Z91.011 Allergy to milk products; Z79.82 Long term (current) use of aspirin; D64.9 Anemia, unspecified; R00.1 Bradycardia, unspecified; N40.0 Benign prostatic hyperplasia without lower urinary tract symptoms; J44.9 Chronic obstructive pulmonary disease, unspecified; Z86.73 Personal history of transient ischemic attack (TIA), and cerebral infarction without residual deficits
CPT/HCPCS: 36415; 80048-TC; 80076-TC; 82550-TC; 83735-TC; 84100-TC; 84443-TC; 84484-TC; 85025-TC; G0378

== ENCOUNTER 2024-11-29 18:43 | Emergency (ER) | payer OTHER, MEDICAID ==
[~2024-11-29] VITALS: Ht 177.8 cm; Wt 68.0 kg
[2024-11-29 19:58] LABS: CALCIUM, SERUM 9.2 mg/dL (8.5-10.1); CARBON DIOXIDE 31 mmol/L (21-32); CHLORIDE 96 mmol/L (98-107); GLUCOSE 73 mg/dL (74-106); POTASSIUM 4.3 mmol/L (3.5-5.1); SODIUM SERUM 134 mmol/L (136-145); UREA NITROGEN, BLOOD 18 mg/dL (7-18)
[2024-11-29 20:04] LABS: ALANINE AMINOTRANSFERASE 85 U/L (12-78); ALBUMIN 3.9 g/dL (3.4-5.0); ALCOHOL, BLOOD < 3 mg/dL (0-10); ALKALINE PHOSPHATASE 51 U/L (46-116); ASPARTATE AMINOTRANSFERASE 94 U/L (15-37); BILIRUBIN,DIRECT 0.7 mg/dL (0.0-0.2); BILIRUBIN,TOTAL 1.9 mg/dL (0.2-1.0); TOTAL PROTEIN, SERUM 8.6 g/dL (6.4-8.2)
[2024-11-29 20:05] LABS: ACETAMINOPHEN <10 ug/ml (10-30)
[2024-11-29 20:06] LABS: SALICYLATE < 2.3 mg/dL (2.8-20.0)
[2024-11-29 20:20] LABS: BASOPHILS % (AUTO) 0.4 % (0.0-2.0); EOSINOPHILS % (AUTO) 0.5 % (0.0-6.0); HEMATOCRIT 38 % (39-51); LYMPHOCYTES # (AUTO) 5.6 K/uL (0.8-4.8); MEAN CORPUSCULAR HEMOGLOBIN 19 PG (26.0-33.0); MEAN CORPUSCULAR HGB CONC 32 g/dl (31.0-36.0); MEAN CORPUSCULAR VOLUME 60 fL (80-96); MONOCYTES # (AUTO) 0.4 K/uL (0.1-1.30); MONOCYTES % (AUTO) 5.3 % (2.0-12.0); NEUTROPHILS # (AUTO) 2.3 K/uL (1.8-8.9); NEUTROPHILS % (AUTO) 26.8 % (43.0-81.0); PLATELET COUNT (AUTO) 179 K/uL (150-450); RED BLOOD CELL COUNT(AUTO) 6.29 MIL/uL (4.5-6.0); RED CELL DISTRIBUTION WIDTH 17.3 % (11.5-15.0); WHITE BLOOD COUNT (AUTO) 8.4 K/uL (4.3-11.0)
[2024-11-29 21:37] LABS: BARBITURATE, URINE NEGATIVE (NEGATIVE); BENZODIAZEPINE, URINE NEGATIVE (NEGATIVE); OPIATE, URINE NEGATIVE (NEGATIVE); PHENCYCLIDINE SCREEN,URINE NEGATIVE (NEGATIVE)
[2024-11-29 21:38] LABS: AMPHETAMINE, URINE POSITIVE (NEGATIVE); CANNABINOID, URINE POSITIVE (NEGATIVE); COCCAINE, URINE POSITIVE (NEGATIVE)
[2024-11-29 21:41] LABS: APPEARANCE,URINE CLEAR (CLEAR); BILIRUBIN,URINE 1+ (NEGATIVE); BLOOD, URINE NEGATIVE Ery/uL (NEGATIVE); COLOR,URINE YELLOW (YELLOW); KETONES,URINE 2+ mg/dL (NEGATIVE); LEUKOCYTE ESTERASE ,URINE NEGATIVE (NEGATIVE); NITRITE, URINE NEGATIVE (NEGATIVE); PROTEIN,URINE NEGATIVE (NEGATIVE); UGLUCOSE NEGATIVE (NEGATIVE)
[2024-11-29 21:49] LABS: ADD URINE CULTURE NO; BACTERIA,URINE None seen /HPF (None Seen); MUCUS,URINE Few /LPF (None Seen); RBC,URINE 0-2 /HPF (0-2); WBC,URINE 0-2 /HPF (0-3)
[2024-11-30 00:35] LABS: ANISOCYTOSIS 1+; LYMPHOCYTES % (MANUAL) 20 % (16-48); MONOCYTES % (MANUAL) 12 % (0-11.0); NEUTROPHILS % (MANUAL) 68 (42-76); OVALOCYTES 1+; PLATELET ESTIMATE ADEQUATE; TARGET CELLS 2+
[2024-11-30 10:01] VITALS: BP 125/64; TEMP 98; O2SAT 98
== END 2024-11-30 10:44 | disposition short-term general hospital (02) ==
LOC: ER 18:52
DX: R45.851 Suicidal ideations (principal); F17.200 Nicotine dependence, unspecified, uncomplicated; F20.9 Schizophrenia, unspecified; F32.A Depression, unspecified; F41.9 Anxiety disorder, unspecified; G40.909 Epilepsy, unspecified, not intractable, without status epilepticus; I10 Essential (primary) hypertension; N40.0 Benign prostatic hyperplasia without lower urinary tract symptoms; Z59.00 Homelessness unspecified; Z79.82 Long term (current) use of aspirin; Z79.899 Other long term (current) drug therapy; Z86.19 Personal history of other infectious and parasitic diseases; Z88.6 Allergy status to analgesic agent; Z20.822 Contact with and (suspected) exposure to COVID-19
CPT/HCPCS: 36415; 80048-TC; 80076-TC; 81001; 85025-TC; G0480